=== PATIENT | male | born 1980 | race Caucasian/White ===

== ENCOUNTER 2024-05-24 22:52 | Emergency (ER) | payer MEDICARE, MEDICAID ==
[~2024-05-24] VITALS: Ht 180.3 cm; Wt 70.5 kg
[~2024-05-24 22:52] MED LIST: PALI39DI IM
[2024-05-24 22:59] VITALS: BP 107/79; PULSE 81; RESP 14; TEMP 98.1; O2SAT 99
[2024-05-25] MEDS ORDERED: PANT40TA54 PO (18:34)
[2024-05-25] MEDS ORDERED: ATOR10TA70 PO (18:34)
[2024-05-25] MEDS ORDERED: PALI234D IM (18:34)
== END 2024-05-25 01:31 | disposition left against medical advice (07) ==
LOC: ER 22:53
DX: R69 Illness, unspecified (principal); Z53.21 Procedure and treatment not carried out due to patient leaving prior to being seen by health care provider; Z88.8 Allergy status to other drugs, medicaments and biological substances

== ENCOUNTER 2024-05-25 03:26 | Emergency (ER) | payer MEDICARE, MEDICAID ==
[~2024-05-25] VITALS: Ht 180.3 cm; Wt 69.8 kg
[2024-05-25 03:31] VITALS: BP 108/79; PULSE 79; RESP 16; TEMP 98; O2SAT 98
[2024-05-25] MEDS ORDERED: ATOR10TA70 PO (18:34)
[2024-05-25] MEDS ORDERED: PALI234D IM (18:34)
[2024-05-25] MEDS ORDERED: PANT40TA54 PO (18:34)
== END 2024-05-25 04:37 | disposition left against medical advice (07) ==
LOC: ER 03:27
DX: R69 Illness, unspecified (principal); Z53.21 Procedure and treatment not carried out due to patient leaving prior to being seen by health care provider

== ENCOUNTER 2024-05-25 11:25 | Emergency (ER) | payer MEDICARE, MEDICAID ==
[~2024-05-25] VITALS: Ht 180.3 cm; Wt 58.2 kg
[2024-05-25 12:56] LABS: BASOPHILS % (AUTO) 0.4 % (0-1); EOSINOPHILS # (AUTO) 0.1 X10'3 (0-0.9); EOSINOPHILS % (AUTO) 1.1 % (0-6); HEMATOCRIT 38.2 % (42.0-52.0); HEMOGLOBIN 12.7 g/dl (14.0-17.9); LYMPHOCYTES # (AUTO) 1.1 X10'3 (1.1-4.8); LYMPHOCYTES % (AUTO) 15.5 % (21-51); MEAN CORPUSCULAR HEMOGLOBIN 31.2 PG (27.0-31.0); MEAN CORPUSCULAR HGB CONC 33.4 g/dL (33.0-36.5); MEAN CORPUSCULAR VOLUME 93.4 FL (78-98); MEAN PLATELET VOLUME 8.1 FL (7.4-10.4); MONOCYTES # (AUTO) 0.8 X10'3 (0-0.9); MONOCYTES % (AUTO) 11.2 % (2-12); NEUTROPHILS # (AUTO) 4.9 X10'3 (1.8-7.7); NEUTROPHILS % (AUTO) 71.8 % (42-75); PLATELET COUNT 249 X10'3 (140-440); RED BLOOD COUNT 4.09 X10'6 (4.70-6.10); RED CELL DISTRIBUTION WIDTH 13.8 % (11.5-14.5); WHITE BLOOD COUNT 6.8 X10'3 (4.5-11.0)
[2024-05-25 13:03] LABS: ALBUMIN 3.9 G/DL (3.4-5.0); ANION GAP 10 (8-16); BLOOD UREA NITROGEN 30 MG/DL (7-18); BUN/CREATININE RATIO 22.6 (10.0-20.0); CALCIUM 9.4 MG/DL (8.5-10.1); CHLORIDE 103 MMOL/L (99-107); CREATININE 1.33 MG/DL (0.60-1.10); ETHANOL < 10 MG/DL (<10); GLUCOSE 142 MG/DL (70-104); POTASSIUM 3.8 MMOL/L (3.5-5.1); SODIUM 140 MMOL/L (135-145); TOTAL CARBON DIOXIDE 27.2 MMOL/L (24-32); eCRCL 58 ML/MIN; eGFR 58 ML/MIN
[2024-05-25 13:33] LABS: URINE AMPHETAMINE SCREEN POSITIVE (Neg); URINE BARBITUATE SCREEN NEGATIVE (Neg); URINE BENZODIAZEPINES SCREEN NEGATIVE (Neg); URINE CANNABINOID SCREEN POSITIVE (Neg); URINE COCAINE SCREEN NEGATIVE (Neg); URINE METHADONE SCREEN NEGATIVE (Neg); URINE OPIATE SCREEN NEGATIVE (Neg); URINE PHENCYCLIDINE SCREEN NEGATIVE (Neg)
[2024-05-25 18:02] VITALS: TEMP 98
[2024-05-25] MEDS ORDERED: PANT40TA54 PO (18:34)
[2024-05-25] MEDS ORDERED: ATOR10TA70 PO (18:34)
[2024-05-25] MEDS ORDERED: PALI234D IM (18:34)
[2024-05-26 05:50] VITALS: BP 96/73; PULSE 78; O2SAT 99
[2024-05-26 06:51] VITALS: RESP 12
[2024-05-26] MEDS: pantoprazole 40mg Tablet.DR PO SCH (08:35)
[2024-06-22] MEDS ORDERED: paliperidone palmitate inj 234 MG/1.5 ML SYRINGE IM SCH (08:00)
== END 2024-05-26 10:55 | disposition home or self-care (01) ==
LOC: ER 11:25
DX: F20.9 Schizophrenia, unspecified (principal); Z20.822 Contact with and (suspected) exposure to COVID-19; F15.10 Other stimulant abuse, uncomplicated; F12.90 Cannabis use, unspecified, uncomplicated; Z88.5 Allergy status to narcotic agent; Z79.899 Other long term (current) drug therapy
CPT/HCPCS: 36415; 80048; 80305; 80320; 85025; 87811; 99284

== ENCOUNTER 2024-05-29 14:51 | Emergency (ER) | payer MEDICARE, MEDICAID ==
[~2024-05-29] VITALS: Ht 180.3 cm; Wt 70.5 kg
[~2024-05-29 14:51] MED LIST changes: +ATOR10TA70 PO; +PALI234D IM; -PALI39DI IM; +PANT40TA54 PO
[2024-05-29 14:59] VITALS: BP 105/72; PULSE 89; RESP 16; TEMP 97.2; O2SAT 97
== END 2024-05-29 15:37 | disposition home or self-care (01) ==
LOC: ER 14:51
DX: F20.9 Schizophrenia, unspecified (principal); F12.90 Cannabis use, unspecified, uncomplicated; F15.90 Other stimulant use, unspecified, uncomplicated; Z88.5 Allergy status to narcotic agent; Z79.899 Other long term (current) drug therapy
CPT/HCPCS: 99281

== ENCOUNTER 2024-05-29 18:03 | Emergency (ER) | payer MEDICARE, MEDICAID ==
[~2024-05-29] VITALS: Ht 180.3 cm; Wt 63.6 kg
[2024-05-29 18:57] LABS: ALBUMIN 3.5 G/DL (3.4-5.0); ANION GAP 11 (8-16); BLOOD UREA NITROGEN 15 MG/DL (7-18); CALCIUM 9.3 MG/DL (8.5-10.1); CHLORIDE 106 MMOL/L (99-107); CREATININE 0.94 MG/DL (0.60-1.10); GLUCOSE 115 MG/DL (70-104); POTASSIUM 3.6 MMOL/L (3.5-5.1); SODIUM 145 MMOL/L (135-145); TOTAL CARBON DIOXIDE 28.1 MMOL/L (24-32); eCRCL 90 ML/MIN; eGFR 87 ML/MIN
[2024-05-29 18:59] LABS: HEMOGLOBIN 11.8 g/dl (14.0-17.9)
[2024-05-29 19:01] LABS: BASOPHILS % (AUTO) 0.4 % (0-1); EOSINOPHILS # (AUTO) 0.2 X10'3 (0-0.9); EOSINOPHILS % (AUTO) 2.5 % (0-6); ETHANOL < 10 MG/DL (<10); HEMATOCRIT 35.4 % (42.0-52.0); LYMPHOCYTES # (AUTO) 1.4 X10'3 (1.1-4.8); LYMPHOCYTES % (AUTO) 22.8 % (21-51); MEAN CORPUSCULAR HGB CONC 33.3 g/dL (33.0-36.5); MEAN CORPUSCULAR VOLUME 93.2 FL (78-98); MEAN PLATELET VOLUME 7.8 FL (7.4-10.4); MONOCYTES # (AUTO) 0.6 X10'3 (0-0.9); MONOCYTES % (AUTO) 9.6 % (2-12); NEUTROPHILS % (AUTO) 64.7 % (42-75); PLATELET COUNT 249 X10'3 (140-440); RED CELL DISTRIBUTION WIDTH 13.9 % (11.5-14.5); WHITE BLOOD COUNT 6.2 X10'3 (4.5-11.0)
[2024-05-29] MEDS: atorvastatin 10mg tablet PO SCH (21:03)
[2024-05-29 22:13] LABS: URINE AMPHETAMINE SCREEN NEGATIVE (Neg); URINE BARBITUATE SCREEN NEGATIVE (Neg); URINE BENZODIAZEPINES SCREEN NEGATIVE (Neg); URINE CANNABINOID SCREEN POSITIVE (Neg); URINE COCAINE SCREEN NEGATIVE (Neg); URINE METHADONE SCREEN NEGATIVE (Neg); URINE OPIATE SCREEN NEGATIVE (Neg); URINE PHENCYCLIDINE SCREEN NEGATIVE (Neg)
[2024-05-29 22:26] LABS: BILIRUBIN,URINE NEGATIVE (Neg); CLARITY,URINE CLEAR (Clear); COLOR,URINE YELLOW (Yellow); GLUCOSE, URINE NEGATIVE (Neg); KETONES,URINE NEGATIVE (Neg); LEUKOCYTE ESTERASE ,URINE NEGATIVE (Neg); NITRITES, URINE NEGATIVE (Neg); OCCULT BLOOD,URINE NEGATIVE (Neg); PROTEIN,URINE NEGATIVE (Neg); UROBILINOGEN,URINE 0.2 E.U/dL (0.2-1.0)
[2024-05-29 22:36] LABS: UA COLLECTION TYPE VOIDED
[2024-05-29 22:36] LABS: ALANINE AMINOTRANSFERASE 110 U/L (12-78); ALBUMIN/GLOBULIN RATIO 1.2 (1.1-1.5); ALKALINE PHOSPHATASE 133 IU/L (46-116); ASPARTATE AMINO TRANSFERASE 41 U/L (10-37); BILIRUBIN,DIRECT 0.1 MG/DL (0-0.3); BILIRUBIN,TOTAL 0.5 MG/DL (0.1-1.0); THYROID STIMULATING HORMONE 2.57 ulU/ml (0.34-4.50); TOTAL PROTEIN 6.5 G/DL (6.4-8.2)
[2024-05-30] MEDS ORDERED: pantoprazole 40mg Tablet.DR PO SCH (08:00)
[2024-05-30 08:59] VITALS: BP 91/53; PULSE 58; RESP 17; O2SAT 100
[2024-05-30 09:24] VITALS: TEMP 97.7
[2024-06-21] MEDS ORDERED: paliperidone palmitate inj 234 MG/1.5 ML SYRINGE IM SCH (08:00)
== END 2024-05-30 09:23 | disposition home or self-care (01) ==
LOC: ER 18:04
DX: F20.9 Schizophrenia, unspecified (principal); Z20.822 Contact with and (suspected) exposure to COVID-19; F12.90 Cannabis use, unspecified, uncomplicated; F15.90 Other stimulant use, unspecified, uncomplicated; Z88.5 Allergy status to narcotic agent; Z79.899 Other long term (current) drug therapy
CPT/HCPCS: 36415; 80048; 80076; 80305; 80320; 81003; 84443; 85025; 87811; 99284

== ENCOUNTER 2024-06-05 18:11 | Emergency (ER) | payer MEDICARE, MEDICAID ==
[~2024-06-05] VITALS: Ht 175.3 cm; Wt 77.3 kg
[2024-06-05 18:14] VITALS: BP 107/62; PULSE 89; RESP 18; TEMP 98.3; O2SAT 98
[2024-06-05] MEDS: naproxen 500mg tablet PO ONE (18:56)
== END 2024-06-05 18:58 | disposition home or self-care (01) ==
LOC: ER 18:11
DX: S90.821A Blister (nonthermal), right foot, initial encounter (principal); F12.90 Cannabis use, unspecified, uncomplicated; F15.10 Other stimulant abuse, uncomplicated; Z88.5 Allergy status to narcotic agent; X58.XXXA Exposure to other specified factors, initial encounter; Y93.89 Activity, other specified; Y92.89 Other specified places as the place of occurrence of the external cause; Y99.8 Other external cause status
CPT/HCPCS: 99283

== ENCOUNTER 2024-06-15 22:42 | Emergency (ER) | payer MEDICARE, MEDICAID ==
[~2024-06-15] VITALS: Ht 180.3 cm; Wt 72.0 kg
[2024-06-15 23:00] LABS: BASOPHILS % (AUTO) 0.6 % (0-1); EOSINOPHILS # (AUTO) 0.2 X10'3 (0-0.9); EOSINOPHILS % (AUTO) 3.6 % (0-6); HEMATOCRIT 32.9 % (42.0-52.0); HEMOGLOBIN 11.1 g/dl (14.0-17.9); LYMPHOCYTES % (AUTO) 32.7 % (21-51); MEAN CORPUSCULAR HEMOGLOBIN 31.4 PG (27.0-31.0); MEAN CORPUSCULAR HGB CONC 33.8 g/dL (33.0-36.5); MEAN CORPUSCULAR VOLUME 92.8 FL (78-98); MONOCYTES # (AUTO) 0.6 X10'3 (0-0.9); MONOCYTES % (AUTO) 9.5 % (2-12); NEUTROPHILS # (AUTO) 3.3 X10'3 (1.8-7.7); NEUTROPHILS % (AUTO) 53.6 % (42-75); PLATELET COUNT 307 X10'3 (140-440); RED BLOOD COUNT 3.54 X10'6 (4.70-6.10); RED CELL DISTRIBUTION WIDTH 13.8 % (11.5-14.5); WHITE BLOOD COUNT 6.1 X10'3 (4.5-11.0)
[2024-06-15] MEDS: diphenhydrAMINE 50 mg/ml inj IM ONE (23:10)
[2024-06-15] MEDS: haloperidol lactate 5mg/ml inj IM ONE (23:10)
[2024-06-15] MEDS: LORazepam 2 mg/ml vial IM ONE (23:10)
[2024-06-15 23:11] LABS: ALBUMIN 3.3 G/DL (3.4-5.0); ANION GAP 5 (8-16); BLOOD UREA NITROGEN 12 MG/DL (7-18); BUN/CREATININE RATIO 15.8 (10.0-20.0); CALCIUM 8.8 MG/DL (8.5-10.1); CHLORIDE 106 MMOL/L (99-107); CREATININE 0.76 MG/DL (0.60-1.10); GLUCOSE 92 MG/DL (70-104); SODIUM 140 MMOL/L (135-145); TOTAL CARBON DIOXIDE 29.4 MMOL/L (24-32); eCRCL 126 ML/MIN; eGFR > 90 ML/MIN
[2024-06-15 23:13] LABS: ETHANOL < 10 MG/DL (<10)
[2024-06-15] MEDS: ketoconazole 2% cream 15gm TP SCH (23:25)
[2024-06-16 00:02] LABS: URINE AMPHETAMINE SCREEN POSITIVE (Neg); URINE BARBITUATE SCREEN NEGATIVE (Neg); URINE BENZODIAZEPINES SCREEN NEGATIVE (Neg); URINE CANNABINOID SCREEN POSITIVE (Neg); URINE COCAINE SCREEN NEGATIVE (Neg); URINE METHADONE SCREEN NEGATIVE (Neg); URINE OPIATE SCREEN NEGATIVE (Neg); URINE PHENCYCLIDINE SCREEN NEGATIVE (Neg)
[2024-06-16 05:51] VITALS: BP 98/52; PULSE 50; RESP 14; TEMP 98.4; O2SAT 99
== END 2024-06-16 16:00 | disposition home or self-care (01) ==
LOC: ER 22:43
DX: R45.851 Suicidal ideations (principal); Z20.822 Contact with and (suspected) exposure to COVID-19; F12.90 Cannabis use, unspecified, uncomplicated; F15.90 Other stimulant use, unspecified, uncomplicated; Z88.5 Allergy status to narcotic agent; Z79.899 Other long term (current) drug therapy
CPT/HCPCS: 36415; 80048; 80305; 80320; 85025; 87811; 99284; 99285

== ENCOUNTER 2024-06-17 22:32 | Inpatient (IN) | payer MEDICARE, MEDICAID ==
[~2024-06-17] VITALS: Ht 180.3 cm; Wt 68.4 kg
[2024-06-18 00:05] LABS: ALANINE AMINOTRANSFERASE 24 U/L (12-78); ALBUMIN 3.2 G/DL (3.4-5.0); ALBUMIN/GLOBULIN RATIO 1.1 (1.1-1.5); ALKALINE PHOSPHATASE 139 IU/L (46-116); ANION GAP 7 (8-16); ASPARTATE AMINO TRANSFERASE 26 U/L (10-37); BILIRUBIN,TOTAL 0.4 MG/DL (0.1-1.0); BLOOD UREA NITROGEN 21 MG/DL (7-18); BUN/CREATININE RATIO 23.1 (10.0-20.0); CALCIUM 9.1 MG/DL (8.5-10.1); CHLORIDE 105 MMOL/L (99-107); CREATININE 0.91 MG/DL (0.60-1.10); GLUCOSE 96 MG/DL (70-104); POTASSIUM 3.9 MMOL/L (3.5-5.1); SODIUM 140 MMOL/L (135-145); TOTAL CARBON DIOXIDE 28.3 MMOL/L (24-32); TOTAL PROTEIN 6.2 G/DL (6.4-8.2); eCRCL 102 ML/MIN; eGFR > 90 ML/MIN
[2024-06-18 00:07] LABS: BASOPHILS % (AUTO) 0.4 % (0-1); EOSINOPHILS # (AUTO) 0.1 X10'3 (0-0.9); HEMATOCRIT 33.7 % (42.0-52.0); HEMOGLOBIN 11.1 g/dl (14.0-17.9); LYMPHOCYTES % (AUTO) 28.4 % (21-51); MEAN CORPUSCULAR VOLUME 93.9 FL (78-98); MEAN PLATELET VOLUME 7.2 FL (7.4-10.4); MONOCYTES # (AUTO) 0.6 X10'3 (0-0.9); MONOCYTES % (AUTO) 8.7 % (2-12); NEUTROPHILS # (AUTO) 4.3 X10'3 (1.8-7.7); NEUTROPHILS % (AUTO) 60.5 % (42-75); PLATELET COUNT 309 X10'3 (140-440); RED BLOOD COUNT 3.59 X10'6 (4.70-6.10); RED CELL DISTRIBUTION WIDTH 13.9 % (11.5-14.5); WHITE BLOOD COUNT 7.2 X10'3 (4.5-11.0)
[2024-06-18 00:14] LABS: ETHANOL < 10 MG/DL (<10); THYROID STIMULATING HORMONE 2.33 ulU/ml (0.34-4.50)
[2024-06-18 12:52] LABS: BILIRUBIN,URINE NEGATIVE (Neg); CLARITY,URINE SLIGHTLY CLOUDY (Clear); COLOR,URINE YELLOW (Yellow); GLUCOSE, URINE NEGATIVE (Neg); KETONES,URINE NEGATIVE (Neg); LEUKOCYTE ESTERASE ,URINE NEGATIVE (Neg); NITRITES, URINE NEGATIVE (Neg); OCCULT BLOOD,URINE NEGATIVE (Neg); PROTEIN,URINE NEGATIVE (Neg); UA COLLECTION TYPE CLN CATCH MIDSTREAM; UROBILINOGEN,URINE 0.2 E.U/dL (0.2-1.0)
[2024-06-18 12:53] LABS: URINE AMPHETAMINE SCREEN POSITIVE (Neg); URINE BARBITUATE SCREEN NEGATIVE (Neg); URINE BENZODIAZEPINES SCREEN NEGATIVE (Neg); URINE CANNABINOID SCREEN POSITIVE (Neg); URINE COCAINE SCREEN NEGATIVE (Neg); URINE METHADONE SCREEN NEGATIVE (Neg); URINE OPIATE SCREEN NEGATIVE (Neg); URINE PHENCYCLIDINE SCREEN NEGATIVE (Neg)
[2024-06-18 12:59] LABS: MUCUS STRANDS MODERATE /LPF (Neg); SQUAMOUS EPITHELIAL CELL,UR FEW /LPF (FEW)
[2024-06-18 13:03] LABS: RBC,URINE 0-2 /HPF (0-2); WBC,URINE 0-4 /HPF (0-4)
[2024-06-18 13:06] LABS: AMORPHOUS PHOSPHATES 1+; BACTERIA,URINE FEW /HPF (Neg)
[2024-06-18] MEDS ORDERED: haloperidol lactate 5mg/ml inj IM ONE (18:50)
[2024-06-18] MEDS: LORazepam 2 mg/ml vial IM ONE ×2 (18:55→19:05)
[2024-06-18] MEDS: diphenhydrAMINE 50 mg/ml inj IM ONE (18:55)
[2024-06-18] MEDS: haloperidol lactate 5mg/ml inj IM ONE ×2 (18:56)
[2024-06-18] MEDS: ziprasidone IM 20mg inj **IM only IM ONE (19:05)
[2024-06-19] MEDS: ziprasidone IM 20mg inj **IM only IM ONE (19:36)
[2024-06-19] MEDS: LORazepam 2 mg/ml vial IM ONE (19:47)
[2024-06-19] MEDS: OLANZapine 5mg rapidly disint. tablet PO SCH (20:00)
[2024-06-20 14:28] VITALS: BP 106/55; PULSE 95; RESP 16; TEMP 98.5; O2SAT 97
[2024-06-20] MEDS ORDERED: NICOTINE POLACRILEX 2 MG LOZENGE BC PRN (14:50)
[2024-06-20] MEDS ORDERED: magnesium hydroxide 30ml (MOM) UD suspension PO PRN (14:50)
[2024-06-20] MEDS ORDERED: mag hydrox/Alum hydrox/simeth 30ml oral suspension PO PRN (14:50)
[2024-06-20] MEDS ORDERED: acetaminophen 325mg tablet PO PRN ×2 (14:50)
[2024-06-20 15:15] VITALS: RESP 16; O2SAT 97
[2024-06-20] MEDS: LORazepam 1 MG tablet PO ONE (16:13)
[2024-06-20] MEDS: LORazepam 1 MG tablet PO SCH (20:09)
[2024-06-21 07:00] VITALS: RESP 16; O2SAT 100
[2024-06-21] MEDS: pantoprazole 40mg Tablet.DR PO SCH (07:49)
[2024-06-21] MEDS: nicotine 21mg patch - 24 hr TD SCH (07:52)
[2024-06-21 08:00] VITALS: BP 110/60; PULSE 78; RESP 16; TEMP 98.4; O2SAT 100
[2024-06-21 09:54] VITALS: BP 110/60; PULSE 78; RESP 16; TEMP 98.4; O2SAT 100
[2024-06-21 09:57] LABS: BASOPHILS % (AUTO) 0.7 % (0-1); EOSINOPHILS # (AUTO) 0.2 X10'3 (0-0.9); EOSINOPHILS % (AUTO) 3.4 % (0-6); HEMATOCRIT 39.8 % (42.0-52.0); HEMOGLOBIN 13.2 g/dl (14.0-17.9); LYMPHOCYTES # (AUTO) 1.1 X10'3 (1.1-4.8); LYMPHOCYTES % (AUTO) 20.1 % (21-51); MEAN CORPUSCULAR HGB CONC 33.2 g/dL (33.0-36.5); MEAN CORPUSCULAR VOLUME 93.5 FL (78-98); MEAN PLATELET VOLUME 6.9 FL (7.4-10.4); MONOCYTES # (AUTO) 0.5 X10'3 (0-0.9); MONOCYTES % (AUTO) 9.5 % (2-12); NEUTROPHILS # (AUTO) 3.5 X10'3 (1.8-7.7); NEUTROPHILS % (AUTO) 66.3 % (42-75); PLATELET COUNT 307 X10'3 (140-440); RED BLOOD COUNT 4.26 X10'6 (4.70-6.10); RED CELL DISTRIBUTION WIDTH 13.8 % (11.5-14.5); WHITE BLOOD COUNT 5.3 X10'3 (4.5-11.0)
[2024-06-21 10:24] LABS: ALANINE AMINOTRANSFERASE 25 U/L (12-78); ALBUMIN 3.2 G/DL (3.4-5.0); ALBUMIN/GLOBULIN RATIO 0.9 (1.1-1.5); ALKALINE PHOSPHATASE 133 IU/L (46-116); ANION GAP 5 (8-16); ASPARTATE AMINO TRANSFERASE 24 U/L (10-37); BILIRUBIN,TOTAL 0.2 MG/DL (0.1-1.0); CALCIUM 9.1 MG/DL (8.5-10.1); CHLORIDE 103 MMOL/L (99-107); CREATININE 0.78 MG/DL (0.60-1.10); GLUCOSE 79 MG/DL (70-104); POTASSIUM 4.6 MMOL/L (3.5-5.1); SODIUM 136 MMOL/L (135-145); THYROID STIMULATING HORMONE 2.68 ulU/ml (0.34-4.50); TOTAL CARBON DIOXIDE 28.4 MMOL/L (24-32); TOTAL PROTEIN 6.6 G/DL (6.4-8.2); eCRCL 117 ML/MIN; eGFR > 90 ML/MIN
[2024-06-21 10:39] LABS: BLOOD UREA NITROGEN 21 MG/DL (7-18); BUN/CREATININE RATIO 26.9 (10.0-20.0); HEMOGLOBIN A1C 5.5 % (4.5-6.2)
[2024-06-21] MEDS: paliperidone palmitate inj 234 MG/1.5 ML SYRINGE IM ONE (12:46)
[2024-06-21] MEDS ORDERED: NICO-907 BC (13:57)
[2024-06-21] MEDS ORDERED: NICO-687 TD (13:57)
[2024-06-21] MEDS ORDERED: ATOR10TA70 PO (13:57)
[2024-06-21] MEDS ORDERED: PANT40TA54 PO (13:57)
== END 2024-06-21 14:05 | disposition home or self-care (01) | DRG 885 ==
LOC: ER 22:32 → ADULT MH 06-20 13:00 → UNDOADMIN 06-20 13:00 → ADULT MH 06-20 14:57
PROVIDERS: ADMIT Psychiatry & Neurology Psychiatry; ATTEND Psychiatry & Neurology Psychiatry
PROC: GZ51ZZZ Individual Psychotherapy, Behavioral (ICD-10-PCS; principal; 2024-06-21)
DX: F25.9 Schizoaffective disorder, unspecified (principal); R45.851 Suicidal ideations; Z59.00 Homelessness unspecified; F17.210 Nicotine dependence, cigarettes, uncomplicated; F15.10 Other stimulant abuse, uncomplicated; Z20.822 Contact with and (suspected) exposure to COVID-19; K22.70 Barrett's esophagus without dysplasia; Z56.0 Unemployment, unspecified; Z81.8 Family history of other mental and behavioral disorders; Z88.5 Allergy status to narcotic agent; Z88.6 Allergy status to analgesic agent; Z79.899 Other long term (current) drug therapy
CPT/HCPCS: 36415; 80053; 80305; 80320; 81001; 83036; 84443; 85025; 87081; 87811; 96372; 99284; 99285; A6258; A6446; A6449; J1200; J2060; J2426; J3486

== ENCOUNTER 2024-07-12 02:37 | Emergency (ER) | payer MEDICARE, MEDICAID ==
[~2024-07-12] VITALS: Ht 180.3 cm; Wt 70.1 kg
[~2024-07-12 02:37] MED LIST changes: +NICO-687 TD; +NICO-907 BC
[2024-07-12 02:47] VITALS: TEMP 97.7
--- NOTE | 2024-07-12 03:26 | NUR ---
yarn sorter requested orders for labs/ua/covid swab from ermd, ermd states to hold off for now b/c he will talk to patient first.
--- NOTE | 2024-07-12 04:23 | NUR ---
PATIENT SCORES HIGH RISK ON CSSRS DREQUENT ASSESSMENT, MD AWARE AND HAS WRITTEN ORDER FOR OBSERVATION STATUS, SEE EMR.
[2024-07-12 04:42] LABS: BILIRUBIN,URINE SMALL (Neg); CLARITY,URINE CLEAR (Clear); GLUCOSE, URINE NEGATIVE (Neg); KETONES,URINE NEGATIVE (Neg); LEUKOCYTE ESTERASE ,URINE NEGATIVE (Neg); OCCULT BLOOD,URINE NEGATIVE (Neg); PROTEIN,URINE NEGATIVE (Neg); UROBILINOGEN,URINE 0.2 E.U/dL (0.2-1.0)
[2024-07-12 04:53] LABS: COLOR,URINE DARK YELLOW (Yellow); NITRITES, URINE NEGATIVE (Neg); UA COLLECTION TYPE CLN CATCH MIDSTREAM
[2024-07-12 04:55] LABS: URINE AMPHETAMINE SCREEN POSITIVE (Neg); URINE BARBITUATE SCREEN NEGATIVE (Neg); URINE BENZODIAZEPINES SCREEN NEGATIVE (Neg); URINE CANNABINOID SCREEN POSITIVE (Neg); URINE COCAINE SCREEN NEGATIVE (Neg); URINE METHADONE SCREEN NEGATIVE (Neg); URINE OPIATE SCREEN NEGATIVE (Neg); URINE PHENCYCLIDINE SCREEN NEGATIVE (Neg)
[2024-07-12 05:08] VITALS: BP 130/77; PULSE 78; RESP 20; O2SAT 98
[2024-07-12 05:12] LABS: BASOPHILS % (AUTO) 0.5 % (0-1); EOSINOPHILS # (AUTO) 0.2 X10'3 (0-0.9); HEMATOCRIT 34.3 % (42.0-52.0); HEMOGLOBIN 11.3 g/dl (14.0-17.9); LYMPHOCYTES # (AUTO) 2.3 X10'3 (1.1-4.8); LYMPHOCYTES % (AUTO) 32.4 % (21-51); MEAN CORPUSCULAR HEMOGLOBIN 30.2 PG (27.0-31.0); MEAN CORPUSCULAR HGB CONC 32.9 g/dL (33.0-36.5); MEAN CORPUSCULAR VOLUME 91.7 FL (78-98); MEAN PLATELET VOLUME 6.9 FL (7.4-10.4); MONOCYTES # (AUTO) 0.7 X10'3 (0-0.9); MONOCYTES % (AUTO) 9.4 % (2-12); NEUTROPHILS # (AUTO) 3.9 X10'3 (1.8-7.7); NEUTROPHILS % (AUTO) 54.7 % (42-75); PLATELET COUNT 272 X10'3 (140-440); RED BLOOD COUNT 3.74 X10'6 (4.70-6.10); RED CELL DISTRIBUTION WIDTH 13.7 % (11.5-14.5); WHITE BLOOD COUNT 7.1 X10'3 (4.5-11.0)
[2024-07-12 05:37] LABS: ALBUMIN 3.2 G/DL (3.4-5.0); ANION GAP 4 (8-16); BLOOD UREA NITROGEN 12 MG/DL (7-18); BUN/CREATININE RATIO 13.3 (10.0-20.0); CALCIUM 8.7 MG/DL (8.5-10.1); CHLORIDE 108 MMOL/L (99-107); GLUCOSE 97 MG/DL (70-104); POTASSIUM 3.6 MMOL/L (3.5-5.1); SODIUM 141 MMOL/L (135-145); THYROID STIMULATING HORMONE 1.54 ulU/ml (0.34-4.50); TOTAL CARBON DIOXIDE 29.2 MMOL/L (24-32); eCRCL 104 ML/MIN; eGFR > 90 ML/MIN
--- NOTE | 2024-07-12 05:37 | NUR ---
DR. RUSSO AT BEDSIDE TO ASSESS PATIENT. FOLLOWING ASSESSMENT, DR. RUSSO INFORMED PATIENT THAT HE FELT THOUGH PATIENT DID NOT MEET CRITERIA FOR PSYCH HOLD IN THE ER AND WOULD BE DISCHARGING PATIENT. DR. RUSSO EXITED ROOM, PLACED DISCHARGE ORDERS, AND RETURNED SHORTLY AFTER WITH TECH IN HIS COMPANY TO FURTHER DISCUSS HIS DECISION WITH PATIENT, PATIENT BECAME VISIBLY ANGRY AND SPIT ON DR. RUSSO AND LUNGED AT TECH STATING, "FUCK YOU FAOTS [employer] NIERS!". SECURITY CALLED TO BEDSIDE TO ESCORT PATIENT OUT ED DUE TO VIOLENT BEHAVIOR, PATIENT LEFT PRIOR TO SIGNING DISCHARGE PAPERWORK.
[2024-07-12 06:05] LABS: ETHANOL < 10 MG/DL (<10)
== END 2024-07-12 05:46 | disposition home or self-care (01) ==
LOC: ER 02:38
DX: R45.851 Suicidal ideations (principal); F15.10 Other stimulant abuse, uncomplicated; F12.90 Cannabis use, unspecified, uncomplicated; F20.9 Schizophrenia, unspecified; Z79.899 Other long term (current) drug therapy; Z88.8 Allergy status to other drugs, medicaments and biological substances; Z59.00 Homelessness unspecified; Z98.890 Other specified postprocedural states; Z20.822 Contact with and (suspected) exposure to COVID-19
CPT/HCPCS: 36415; 80048; 80305; 80320; 81003; 84443; 85025; 87811; 99283; 99285

== ENCOUNTER 2024-08-21 21:38 | Emergency (ER) | payer MEDICARE, MEDICAID ==
[~2024-08-21] VITALS: Ht 180.3 cm; Wt 68.2 kg
[~2024-08-21 21:38] MED LIST changes: -ATOR10TA70 PO; -NICO-687 TD; -NICO-907 BC; -PANT40TA54 PO
[2024-08-21 21:47] VITALS: BP 100/64; PULSE 74; TEMP 97.7; O2SAT 94
[2024-08-21 22:18] LABS: BASOPHILS % (AUTO) 0.6 % (0-1); EOSINOPHILS # (AUTO) 0.3 X10'3 (0-0.9); EOSINOPHILS % (AUTO) 3.9 % (0-6); HEMATOCRIT 35.4 % (42.0-52.0); HEMOGLOBIN 11.7 g/dl (14.0-17.9); LYMPHOCYTES # (AUTO) 2.1 X10'3 (1.1-4.8); LYMPHOCYTES % (AUTO) 29.4 % (21-51); MEAN CORPUSCULAR HEMOGLOBIN 31.2 PG (27.0-31.0); MEAN CORPUSCULAR HGB CONC 33.1 g/dL (33.0-36.5); MEAN CORPUSCULAR VOLUME 94.3 FL (78-98); MEAN PLATELET VOLUME 7.9 FL (7.4-10.4); MONOCYTES # (AUTO) 0.6 X10'3 (0-0.9); MONOCYTES % (AUTO) 9.1 % (2-12); NEUTROPHILS # (AUTO) 4.1 X10'3 (1.8-7.7); PLATELET COUNT 259 X10'3 (140-440); RED BLOOD COUNT 3.76 X10'6 (4.70-6.10); RED CELL DISTRIBUTION WIDTH 14.1 % (11.5-14.5); WHITE BLOOD COUNT 7.1 X10'3 (4.5-11.0)
[2024-08-21] MEDS ORDERED: PANT-47 PO (22:32)
[2024-08-21] MEDS ORDERED: ATOR20TA66 PO (22:34)
[2024-08-21] MEDS ORDERED: hydrOXYzine 25 MG tablet PO PRN (22:40)
[2024-08-21 22:42] LABS: ALANINE AMINOTRANSFERASE 27 U/L (12-78); ALBUMIN 3.3 G/DL (3.4-5.0); ALBUMIN/GLOBULIN RATIO 1.3 (1.1-1.5); ALKALINE PHOSPHATASE 96 IU/L (46-116); ANION GAP 5 (8-16); ASPARTATE AMINO TRANSFERASE 26 U/L (10-37); BILIRUBIN,TOTAL 0.3 MG/DL (0.1-1.0); BLOOD UREA NITROGEN 14 MG/DL (7-18); BUN/CREATININE RATIO 16.3 (10.0-20.0); CALCIUM 8.5 MG/DL (8.5-10.1); CHLORIDE 105 MMOL/L (99-107); CREATININE 0.86 MG/DL (0.60-1.10); GLUCOSE 81 MG/DL (70-104); POTASSIUM 3.5 MMOL/L (3.5-5.1); SODIUM 138 MMOL/L (135-145); TOTAL CARBON DIOXIDE 28.1 MMOL/L (24-32); TOTAL PROTEIN 5.8 G/DL (6.4-8.2); eCRCL 106 ML/MIN; eGFR > 90 ML/MIN
[2024-08-21 22:51] LABS: PRO BRAIN NATRIURETIC PEPTIDE 784 PG/ML (0-125)
[2024-08-22 03:00] VITALS: RESP 14
[2024-08-22] MEDS: divalproex 250mg tablet, delayed-release PO SCH (08:47)
[2024-08-22] MEDS: PALIPERIDONE 3 MG TAB.ER.24 PO SCH (08:47)
[2024-08-22] MEDS: atorvastatin 10mg tablet PO SCH (08:47)
[2024-08-22] MEDS: pantoprazole 40mg Tablet.DR PO SCH (08:48)
== END 2024-08-22 14:27 | disposition home or self-care (01) ==
LOC: ER 21:38
DX: F29 Unspecified psychosis not due to a substance or known physiological condition (principal); F20.9 Schizophrenia, unspecified; F12.90 Cannabis use, unspecified, uncomplicated; F15.90 Other stimulant use, unspecified, uncomplicated; Z88.8 Allergy status to other drugs, medicaments and biological substances; Z88.5 Allergy status to narcotic agent; Z59.00 Homelessness unspecified
CPT/HCPCS: 36415; 71045; 80053; 83880; 84484; 85025; 93005; 99285

== ENCOUNTER 2024-09-04 16:35 | Emergency (ER) | payer MEDICARE, MEDICAID ==
[~2024-09-04] VITALS: Ht 172.7 cm; Wt 67.6 kg
[~2024-09-04 16:35] MED LIST changes: +ATOR20TA66 PO; +PANT-47 PO
[2024-09-04 16:36] VITALS: BP 115/77; PULSE 103; RESP 16; TEMP 98.2; O2SAT 100
== END 2024-09-04 21:16 | disposition home or self-care (01) ==
LOC: ER 16:35
DX: F20.9 Schizophrenia, unspecified (principal); F12.90 Cannabis use, unspecified, uncomplicated; F15.90 Other stimulant use, unspecified, uncomplicated; Z88.5 Allergy status to narcotic agent; Z79.899 Other long term (current) drug therapy; Z59.00 Homelessness unspecified
CPT/HCPCS: 99281; 99282

== ENCOUNTER 2024-09-06 18:37 | Inpatient (IN) | payer MEDICARE, MEDICAID ==
[~2024-09-06] VITALS: Ht 180.3 cm; Wt 68.3 kg
[2024-09-07 00:05] VITALS: BP 101/70; PULSE 73; RESP 18; TEMP 96.5; O2SAT 100
[2024-09-07 01:21] VITALS: RESP 18; O2SAT 100
[2024-09-07 07:00] VITALS: RESP 16; O2SAT 98
[2024-09-07 08:00] VITALS: BP 80/46; PULSE 61; RESP 16; TEMP 97.2; O2SAT 98
[2024-09-07] MEDS ORDERED: loperamide 2mg capsule PO PRN (10:20)
[2024-09-07] MEDS ORDERED: magnesium hydroxide 30ml (MOM) UD suspension PO PRN (10:20)
[2024-09-07] MEDS ORDERED: acetaminophen 325mg tablet PO PRN ×2 (10:20)
[2024-09-07] MEDS ORDERED: mag hydrox/Alum hydrox/simeth 30ml oral suspension PO PRN (10:20)
[2024-09-07] MEDS ORDERED: NICOTINE POLACRILEX 2 MG LOZENGE BC PRN (10:20)
[2024-09-07] MEDS: paliperidone palmitate 156 mg/ml inj.**IM only IM SCH (12:05)
[2024-09-07] MEDS: OLANZapine **IM** 10 mg inj. IM ONE (12:09)
[2024-09-07] MEDS: diphenhydrAMINE 50 mg/ml inj ONE (15:06)
[2024-09-07] MEDS: LORazepam 2 mg/ml vial ONE (15:06)
[2024-09-07 19:00] VITALS: RESP 16
[2024-09-07 20:00] VITALS: RESP 18
[2024-09-08 07:00] VITALS: BP 94/61; PULSE 66; RESP 66; TEMP 99; O2SAT 100
[2024-09-08 09:26] LABS: CHOLESTEROL 161 MG/DL (0-200); HDL CHOLESTEROL 54 MG/DL (35-60); LDL CHOLESTEROL 97 MG/DL (50-100); TRIGLYCERIDES 63 MG/DL (20-135)
[2024-09-08 09:43] LABS: HEMOGLOBIN A1C 5.4 % (4.5-6.2)
== END 2024-09-08 13:26 | disposition home or self-care (01) | DRG 885 ==
LOC: ADULT MH 21:27
PROVIDERS: ADMIT Psychiatry & Neurology Psychiatry; ATTEND Psychiatry & Neurology Psychiatry
DX: F25.9 Schizoaffective disorder, unspecified (principal); R45.851 Suicidal ideations; Z59.00 Homelessness unspecified; F15.10 Other stimulant abuse, uncomplicated; F32.A Depression, unspecified; Z88.5 Allergy status to narcotic agent; Z88.8 Allergy status to other drugs, medicaments and biological substances
CPT/HCPCS: 36415; 80061; 83036; J1200; J2060; J3490

== ENCOUNTER 2024-11-30 23:54 | Emergency (ER) | payer MEDICARE, MEDICAID ==
[2024-12-01 00:39] LABS: BASOPHILS % (AUTO) 0.7 % (0-1); EOSINOPHILS # (AUTO) 0.2 X10'3 (0-0.9); EOSINOPHILS % (AUTO) 3.6 % (0-6); HEMATOCRIT 34.8 % (42.0-52.0); HEMOGLOBIN 11.6 g/dl (14.0-17.9); LYMPHOCYTES # (AUTO) 1.1 X10'3 (1.1-4.8); MEAN CORPUSCULAR HEMOGLOBIN 30.2 PG (27.0-31.0); MEAN CORPUSCULAR HGB CONC 33.4 g/dL (33.0-36.5); MEAN CORPUSCULAR VOLUME 90.4 FL (78-98); MEAN PLATELET VOLUME 6.6 FL (7.4-10.4); MONOCYTES # (AUTO) 0.7 X10'3 (0-0.9); MONOCYTES % (AUTO) 12.3 % (2-12); NEUTROPHILS # (AUTO) 3.9 X10'3 (1.8-7.7); NEUTROPHILS % (AUTO) 65.4 % (42-75); PLATELET COUNT 349 X10'3 (140-440); RED BLOOD COUNT 3.85 X10'6 (4.70-6.10); RED CELL DISTRIBUTION WIDTH 14.1 % (11.5-14.5); WHITE BLOOD COUNT 5.9 X10'3 (4.5-11.0)
[2024-12-01 01:43] LABS: ALBUMIN 3.3 G/DL (3.4-5.0); ANION GAP 3 (8-16); BLOOD UREA NITROGEN 19 MG/DL (7-18); BUN/CREATININE RATIO 24.7 (10.0-20.0); CHLORIDE 105 MMOL/L (99-107); CREATININE 0.77 MG/DL (0.60-1.10); ETHANOL < 10 MG/DL (<10); GLUCOSE 67 MG/DL (70-104); POTASSIUM 3.8 MMOL/L (3.5-5.1); SODIUM 139 MMOL/L (135-145); THYROID STIMULATING HORMONE 1.86 ulU/ml (0.34-4.50); TOTAL CARBON DIOXIDE 30.9 MMOL/L (24-32); eGFR > 90 ML/MIN
[2024-12-01 07:18] LABS: BILIRUBIN,URINE NEGATIVE (Neg); CLARITY,URINE CLEAR (Clear); COLOR,URINE YELLOW (Yellow); GLUCOSE, URINE NEGATIVE (Neg); KETONES,URINE NEGATIVE (Neg); LEUKOCYTE ESTERASE ,URINE NEGATIVE (Neg); NITRITES, URINE NEGATIVE (Neg); OCCULT BLOOD,URINE NEGATIVE (Neg); PROTEIN,URINE NEGATIVE (Neg); UROBILINOGEN,URINE 0.2 E.U/dL (0.2-1.0)
[2024-12-01 07:24] LABS: UA COLLECTION TYPE NON-SPECIFIED
[2024-12-01 07:30] LABS: URINE AMPHETAMINE SCREEN POSITIVE (Neg); URINE BARBITUATE SCREEN NEGATIVE (Neg); URINE BENZODIAZEPINES SCREEN NEGATIVE (Neg); URINE CANNABINOID SCREEN POSITIVE (Neg); URINE COCAINE SCREEN NEGATIVE (Neg); URINE METHADONE SCREEN NEGATIVE (Neg); URINE OPIATE SCREEN NEGATIVE (Neg); URINE PHENCYCLIDINE SCREEN NEGATIVE (Neg)
[2024-12-01] MEDS: paliperidone palmitate inj 234 MG/1.5 ML SYRINGE IM SCH (13:31)
[2024-12-01 13:48] VITALS: BP 121/75; PULSE 90; RESP 16; TEMP 98; O2SAT 99
== END 2024-12-01 14:43 | disposition still patient (30) ==
LOC: ER 23:55
DX: F20.9 Schizophrenia, unspecified (principal); R45.851 Suicidal ideations; F32.A Depression, unspecified; F12.90 Cannabis use, unspecified, uncomplicated; F15.90 Other stimulant use, unspecified, uncomplicated; Z98.890 Other specified postprocedural states; Z88.5 Allergy status to narcotic agent; Z59.00 Homelessness unspecified; Z20.822 Contact with and (suspected) exposure to COVID-19; Z79.899 Other long term (current) drug therapy; Z88.8 Allergy status to other drugs, medicaments and biological substances
CPT/HCPCS: 36415; 80048; 80305; 80320; 81003; 84443; 85025; 87811; 96372; 99285; J2426

== ENCOUNTER 2025-01-09 23:41 | Emergency (ER) | payer MEDICARE, MEDICAID ==
[~2025-01-09] VITALS: Ht 180.3 cm; Wt 72.5 kg
[~2025-01-09 23:41] MED LIST changes: -ATOR20TA66 PO; -PANT-47 PO
[2025-01-10 01:14] LABS: BASOPHILS % (AUTO) 0.5 % (0-1); EOSINOPHILS # (AUTO) 0.3 X10'3 (0-0.9); EOSINOPHILS % (AUTO) 3.1 % (0-6); HEMATOCRIT 33.2 % (42.0-52.0); HEMOGLOBIN 11.1 g/dl (14.0-17.9); LYMPHOCYTES # (AUTO) 1.6 X10'3 (1.1-4.8); MEAN CORPUSCULAR HEMOGLOBIN 29.2 PG (27.0-31.0); MEAN CORPUSCULAR HGB CONC 33.3 g/dL (33.0-36.5); MEAN CORPUSCULAR VOLUME 87.7 FL (78-98); MEAN PLATELET VOLUME 6.3 FL (7.4-10.4); MONOCYTES # (AUTO) 1.1 X10'3 (0-0.9); MONOCYTES % (AUTO) 13.1 % (2-12); NEUTROPHILS # (AUTO) 5.2 X10'3 (1.8-7.7); NEUTROPHILS % (AUTO) 63.3 % (42-75); PLATELET COUNT 400 X10'3 (140-440); RED BLOOD COUNT 3.79 X10'6 (4.70-6.10); RED CELL DISTRIBUTION WIDTH 13.9 % (11.5-14.5); WHITE BLOOD COUNT 8.2 X10'3 (4.5-11.0)
[2025-01-10 01:37] LABS: ALANINE AMINOTRANSFERASE 19 U/L (12-78); ALBUMIN 2.8 G/DL (3.4-5.0); ALBUMIN/GLOBULIN RATIO 0.8 (1.1-1.5); ALKALINE PHOSPHATASE 106 IU/L (46-116); ANION GAP 5 (8-16); ASPARTATE AMINO TRANSFERASE 18 U/L (10-37); BILIRUBIN,TOTAL 0.1 MG/DL (0.1-1.0); BLOOD UREA NITROGEN 15 MG/DL (7-18); BUN/CREATININE RATIO 23.1 (10.0-20.0); CALCIUM 8.4 MG/DL (8.5-10.1); CHLORIDE 107 MMOL/L (99-107); CREATININE 0.65 MG/DL (0.60-1.10); GLUCOSE 86 MG/DL (70-104); POTASSIUM 3.7 MMOL/L (3.5-5.1); SALICYLATE 2.4 MG/DL (4.0-20.0); SODIUM 140 MMOL/L (135-145); THYROID STIMULATING HORMONE 2.85 ulU/ml (0.34-4.50); TOTAL CARBON DIOXIDE 27.6 MMOL/L (24-32); TOTAL PROTEIN 6.3 G/DL (6.4-8.2); eCRCL 147 ML/MIN; eGFR > 90 ML/MIN
[2025-01-10 01:37] LABS: BILIRUBIN,URINE NEGATIVE (Neg); CLARITY,URINE CLEAR (Clear); COLOR,URINE YELLOW (Yellow); GLUCOSE, URINE NEGATIVE (Neg); KETONES,URINE NEGATIVE (Neg); LEUKOCYTE ESTERASE ,URINE NEGATIVE (Neg); NITRITES, URINE NEGATIVE (Neg); OCCULT BLOOD,URINE NEGATIVE (Neg); PROTEIN,URINE NEGATIVE (Neg); UROBILINOGEN,URINE 0.2 E.U/dL (0.2-1.0)
[2025-01-10 01:41] LABS: UA COLLECTION TYPE URINAL
[2025-01-10 01:49] LABS: ACETAMINOPHEN < 2.0 UG/ML (10-30); ETHANOL < 10 MG/DL (<10)
[2025-01-10 02:01] LABS: URINE AMPHETAMINE SCREEN POSITIVE (Neg); URINE BARBITUATE SCREEN NEGATIVE (Neg); URINE BENZODIAZEPINES SCREEN NEGATIVE (Neg); URINE CANNABINOID SCREEN POSITIVE (Neg); URINE COCAINE SCREEN NEGATIVE (Neg); URINE METHADONE SCREEN NEGATIVE (Neg); URINE OPIATE SCREEN NEGATIVE (Neg); URINE PHENCYCLIDINE SCREEN NEGATIVE (Neg)
[2025-01-10 12:34] VITALS: BP 114/89; PULSE 95; RESP 18; TEMP 98.2; O2SAT 98
== END 2025-01-10 12:41 | disposition home or self-care (01) ==
LOC: ER 23:42
DX: F99 Mental disorder, not otherwise specified (principal); F20.9 Schizophrenia, unspecified; F17.200 Nicotine dependence, unspecified, uncomplicated; Z20.822 Contact with and (suspected) exposure to COVID-19; F12.90 Cannabis use, unspecified, uncomplicated; Z88.5 Allergy status to narcotic agent; Z88.8 Allergy status to other drugs, medicaments and biological substances
CPT/HCPCS: 36415; 80053; 80305; 80329; 81003; 84443; 85025; 87811; 99284; G0480; 80320

== ENCOUNTER 2025-01-30 03:15 | Emergency (ER) | payer MEDICARE, MEDICAID ==
[~2025-01-30] VITALS: Ht 182.9 cm; Wt 79.5 kg
[2025-01-30 03:20] VITALS: BP 106/70; PULSE 99; RESP 18; TEMP 98; O2SAT 95
[2025-01-30] MEDS: OLANZapine 5mg rapidly disint. tablet PO ONE (04:55)
== END 2025-01-30 04:58 | disposition left against medical advice (07) ==
LOC: ER 03:15
DX: F25.9 Schizoaffective disorder, unspecified (principal); Z59.00 Homelessness unspecified; D69.6 Thrombocytopenia, unspecified; F12.929 Cannabis use, unspecified with intoxication, unspecified; F15.129 Other stimulant abuse with intoxication, unspecified; Z88.5 Allergy status to narcotic agent
CPT/HCPCS: 99281; 99283

== ENCOUNTER 2025-01-30 22:49 | Emergency (ER) | payer MEDICARE, MEDICAID ==
[~2025-01-30] VITALS: Ht 180.3 cm; Wt 73.8 kg
[2025-01-31 01:57] LABS: BASOPHILS % (AUTO) 0.3 % (0-1); EOSINOPHILS # (AUTO) 0.1 X10'3 (0-0.9); EOSINOPHILS % (AUTO) 1.3 % (0-6); HEMATOCRIT 34.3 % (42.0-52.0); HEMOGLOBIN 11.4 g/dl (14.0-17.9); LYMPHOCYTES # (AUTO) 1.3 X10'3 (1.1-4.8); LYMPHOCYTES % (AUTO) 11.7 % (21-51); MEAN CORPUSCULAR HEMOGLOBIN 28.6 PG (27.0-31.0); MEAN CORPUSCULAR HGB CONC 33.1 g/dL (33.0-36.5); MEAN CORPUSCULAR VOLUME 86.5 FL (78-98); MEAN PLATELET VOLUME 6.6 FL (7.4-10.4); MONOCYTES # (AUTO) 1.2 X10'3 (0-0.9); MONOCYTES % (AUTO) 10.8 % (2-12); NEUTROPHILS # (AUTO) 8.6 X10'3 (1.8-7.7); NEUTROPHILS % (AUTO) 75.9 % (42-75); PLATELET COUNT 312 X10'3 (140-440); RED BLOOD COUNT 3.97 X10'6 (4.70-6.10); RED CELL DISTRIBUTION WIDTH 14.9 % (11.5-14.5); WHITE BLOOD COUNT 11.4 X10'3 (4.5-11.0)
[2025-01-31 02:06] LABS: ALANINE AMINOTRANSFERASE 31 U/L (12-78); ALBUMIN 2.8 G/DL (3.4-5.0); ALBUMIN/GLOBULIN RATIO 0.7 (1.1-1.5); ALKALINE PHOSPHATASE 131 IU/L (46-116); ANION GAP 6 (8-16); ASPARTATE AMINO TRANSFERASE 20 U/L (10-37); BILIRUBIN,TOTAL 0.5 MG/DL (0.1-1.0); BLOOD UREA NITROGEN 13 MG/DL (7-18); BUN/CREATININE RATIO 17.6 (10.0-20.0); CALCIUM 8.6 MG/DL (8.5-10.1); CHLORIDE 106 MMOL/L (99-107); CREATININE 0.74 MG/DL (0.60-1.10); GLUCOSE 127 MG/DL (70-104); POTASSIUM 3.5 MMOL/L (3.5-5.1); SODIUM 139 MMOL/L (135-145); TOTAL CARBON DIOXIDE 26.6 MMOL/L (24-32); TOTAL PROTEIN 6.7 G/DL (6.4-8.2); eCRCL 132 ML/MIN; eGFR > 90 ML/MIN
[2025-01-31 02:07] LABS: ETHANOL < 10 MG/DL (<10)
[2025-01-31 02:29] LABS: BILIRUBIN,URINE NEGATIVE (Neg); CLARITY,URINE CLEAR (Clear); COLOR,URINE YELLOW (Yellow); GLUCOSE, URINE NEGATIVE (Neg); KETONES,URINE NEGATIVE (Neg); LEUKOCYTE ESTERASE ,URINE NEGATIVE (Neg); NITRITES, URINE NEGATIVE (Neg); OCCULT BLOOD,URINE NEGATIVE (Neg); PROTEIN,URINE NEGATIVE (Neg)
[2025-01-31 02:37] LABS: UA COLLECTION TYPE CLN CATCH MIDSTREAM
[2025-01-31 02:47] LABS: URINE AMPHETAMINE SCREEN POSITIVE (Neg); URINE BARBITUATE SCREEN NEGATIVE (Neg); URINE BENZODIAZEPINES SCREEN NEGATIVE (Neg); URINE CANNABINOID SCREEN POSITIVE (Neg); URINE COCAINE SCREEN NEGATIVE (Neg); URINE METHADONE SCREEN NEGATIVE (Neg); URINE OPIATE SCREEN NEGATIVE (Neg); URINE PHENCYCLIDINE SCREEN NEGATIVE (Neg)
[2025-01-31 10:29] VITALS: BP 138/98; PULSE 98; RESP 16; TEMP 99.4; O2SAT 97
== END 2025-01-31 10:32 | disposition home or self-care (01) ==
LOC: ER 22:53
DX: F29 Unspecified psychosis not due to a substance or known physiological condition (principal); R45.851 Suicidal ideations; F12.90 Cannabis use, unspecified, uncomplicated; F15.90 Other stimulant use, unspecified, uncomplicated; F20.9 Schizophrenia, unspecified; Z88.5 Allergy status to narcotic agent; Z88.8 Allergy status to other drugs, medicaments and biological substances; Z20.822 Contact with and (suspected) exposure to COVID-19
CPT/HCPCS: 36415; 80053; 80305; 81003; 85025; 87811; 99285; G0480; 80320; 99284

== ENCOUNTER 2025-02-09 01:08 | Emergency (ER) | payer MEDICARE, MEDICAID ==
[2025-02-09 02:00] LABS: BASOPHILS % (AUTO) 0.4 % (0-1); EOSINOPHILS # (AUTO) 0.2 X10'3 (0-0.9); EOSINOPHILS % (AUTO) 3.1 % (0-6); HEMATOCRIT 34.2 % (42.0-52.0); HEMOGLOBIN 11.7 g/dl (14.0-17.9); LYMPHOCYTES # (AUTO) 1.6 X10'3 (1.1-4.8); MEAN CORPUSCULAR HEMOGLOBIN 29.7 PG (27.0-31.0); MEAN CORPUSCULAR HGB CONC 34.2 g/dL (33.0-36.5); MEAN PLATELET VOLUME 6.5 FL (7.4-10.4); MONOCYTES # (AUTO) 0.7 X10'3 (0-0.9); MONOCYTES % (AUTO) 9.4 % (2-12); NEUTROPHILS # (AUTO) 5.3 X10'3 (1.8-7.7); NEUTROPHILS % (AUTO) 67.1 % (42-75); PLATELET COUNT 450 X10'3 (140-440); RED BLOOD COUNT 3.93 X10'6 (4.70-6.10); RED CELL DISTRIBUTION WIDTH 15.4 % (11.5-14.5); WHITE BLOOD COUNT 7.9 X10'3 (4.5-11.0)
[2025-02-09 02:22] LABS: ANION GAP 5 (8-16); BLOOD UREA NITROGEN 19 MG/DL (7-18); BUN/CREATININE RATIO 26.8 (10.0-20.0); CALCIUM 8.5 MG/DL (8.5-10.1); CHLORIDE 106 MMOL/L (99-107); CREATININE 0.71 MG/DL (0.60-1.10); GLUCOSE 86 MG/DL (70-104); POTASSIUM 3.4 MMOL/L (3.5-5.1); SODIUM 139 MMOL/L (135-145); THYROID STIMULATING HORMONE 1.59 ulU/ml (0.34-4.50); TOTAL CARBON DIOXIDE 28.1 MMOL/L (24-32); eGFR > 90 ML/MIN
[2025-02-09 02:28] LABS: ETHANOL < 10 MG/DL (<10)
[2025-02-09 07:50] LABS: BILIRUBIN,URINE NEGATIVE (Neg); CLARITY,URINE CLEAR (Clear); COLOR,URINE YELLOW (Yellow); GLUCOSE, URINE NEGATIVE (Neg); KETONES,URINE NEGATIVE (Neg); LEUKOCYTE ESTERASE ,URINE NEGATIVE (Neg); NITRITES, URINE NEGATIVE (Neg); OCCULT BLOOD,URINE NEGATIVE (Neg); PROTEIN,URINE NEGATIVE (Neg); UROBILINOGEN,URINE 0.2 E.U/dL (0.2-1.0)
[2025-02-09 07:56] LABS: UA COLLECTION TYPE VOIDED
[2025-02-09 07:58] LABS: URINE AMPHETAMINE SCREEN POSITIVE (Neg); URINE BARBITUATE SCREEN NEGATIVE (Neg); URINE BENZODIAZEPINES SCREEN NEGATIVE (Neg); URINE CANNABINOID SCREEN POSITIVE (Neg); URINE COCAINE SCREEN NEGATIVE (Neg); URINE METHADONE SCREEN NEGATIVE (Neg); URINE OPIATE SCREEN NEGATIVE (Neg); URINE PHENCYCLIDINE SCREEN NEGATIVE (Neg)
[2025-02-09 12:39] VITALS: BP 148/78; PULSE 102; RESP 16; TEMP 98.2; O2SAT 99
== END 2025-02-09 12:32 | disposition home or self-care (01) ==
LOC: ER 01:09
DX: Z73.6 Limitation of activities due to disability (principal); F20.9 Schizophrenia, unspecified; F12.90 Cannabis use, unspecified, uncomplicated; F15.90 Other stimulant use, unspecified, uncomplicated; Z98.890 Other specified postprocedural states; Z59.00 Homelessness unspecified; Z88.5 Allergy status to narcotic agent; Z88.8 Allergy status to other drugs, medicaments and biological substances; Z79.899 Other long term (current) drug therapy; Z20.822 Contact with and (suspected) exposure to COVID-19
CPT/HCPCS: 36415; 80048; 80305; 81003; 84443; 85025; 87811; 99284; G0480; 80320; 99283

== ENCOUNTER 2025-02-11 01:00 | Emergency (ER) | payer MEDICARE, MEDICAID ==
[~2025-02-11] VITALS: Ht 180.3 cm; Wt 70.5 kg
[2025-02-11 01:16] VITALS: BP 106/69; PULSE 113; O2SAT 97
[2025-02-11 01:47] LABS: BASOPHILS % (AUTO) 0.5 % (0-1); EOSINOPHILS # (AUTO) 0.1 X10'3 (0-0.9); EOSINOPHILS % (AUTO) 1.3 % (0-6); HEMATOCRIT 35.6 % (42.0-52.0); HEMOGLOBIN 11.9 g/dl (14.0-17.9); LYMPHOCYTES # (AUTO) 1.7 X10'3 (1.1-4.8); LYMPHOCYTES % (AUTO) 18.1 % (21-51); MEAN CORPUSCULAR HEMOGLOBIN 29.1 PG (27.0-31.0); MEAN CORPUSCULAR HGB CONC 33.4 g/dL (33.0-36.5); MEAN CORPUSCULAR VOLUME 87.2 FL (78-98); MEAN PLATELET VOLUME 6.6 FL (7.4-10.4); MONOCYTES # (AUTO) 0.7 X10'3 (0-0.9); MONOCYTES % (AUTO) 7.7 % (2-12); NEUTROPHILS # (AUTO) 6.7 X10'3 (1.8-7.7); NEUTROPHILS % (AUTO) 72.4 % (42-75); PLATELET COUNT 475 X10'3 (140-440); RED BLOOD COUNT 4.08 X10'6 (4.70-6.10); RED CELL DISTRIBUTION WIDTH 15.5 % (11.5-14.5); WHITE BLOOD COUNT 9.2 X10'3 (4.5-11.0)
[2025-02-11 02:09] VITALS: RESP 16
[2025-02-11 02:11] LABS: ALBUMIN 3.2 G/DL (3.4-5.0); ANION GAP 6 (8-16); BLOOD UREA NITROGEN 19 MG/DL (7-18); BUN/CREATININE RATIO 22.1 (10.0-20.0); CALCIUM 8.8 MG/DL (8.5-10.1); CHLORIDE 103 MMOL/L (99-107); CREATININE 0.86 MG/DL (0.60-1.10); ETHANOL < 10 MG/DL (<10); GLUCOSE 134 MG/DL (70-104); POTASSIUM 3.8 MMOL/L (3.5-5.1); SODIUM 136 MMOL/L (135-145); THYROID STIMULATING HORMONE 1.39 ulU/ml (0.34-4.50); TOTAL CARBON DIOXIDE 26.9 MMOL/L (24-32); eCRCL 108 ML/MIN; eGFR > 90 ML/MIN
[2025-02-11 02:28] LABS: BILIRUBIN,URINE NEGATIVE (Neg); CLARITY,URINE CLEAR (Clear); COLOR,URINE YELLOW (Yellow); GLUCOSE, URINE NEGATIVE (Neg); KETONES,URINE NEGATIVE (Neg); LEUKOCYTE ESTERASE ,URINE NEGATIVE (Neg); NITRITES, URINE NEGATIVE (Neg); OCCULT BLOOD,URINE NEGATIVE (Neg); PROTEIN,URINE NEGATIVE (Neg); UROBILINOGEN,URINE 0.2 E.U/dL (0.2-1.0)
[2025-02-11 02:34] LABS: UA COLLECTION TYPE CLN CATCH MIDSTREAM
[2025-02-11 02:46] LABS: URINE AMPHETAMINE SCREEN POSITIVE (Neg); URINE BARBITUATE SCREEN NEGATIVE (Neg); URINE BENZODIAZEPINES SCREEN NEGATIVE (Neg); URINE CANNABINOID SCREEN POSITIVE (Neg); URINE COCAINE SCREEN NEGATIVE (Neg); URINE METHADONE SCREEN NEGATIVE (Neg); URINE OPIATE SCREEN NEGATIVE (Neg); URINE PHENCYCLIDINE SCREEN NEGATIVE (Neg)
[2025-02-11] MEDS: OLANZapine 5mg rapidly disint. tablet PO ONE (02:58)
[2025-02-11 05:03] VITALS: TEMP 97.2
== END 2025-02-11 05:15 | disposition home or self-care (01) ==
LOC: ER 01:00
DX: F25.9 Schizoaffective disorder, unspecified (principal); F15.90 Other stimulant use, unspecified, uncomplicated; Z59.00 Homelessness unspecified; Z20.822 Contact with and (suspected) exposure to COVID-19
CPT/HCPCS: 36415; 80048; 80305; 81003; 84443; 85025; 87811; 99283; G0480; 80320

== ENCOUNTER 2025-02-11 12:57 | Emergency (ER) | payer MEDICARE, MEDICAID | END 2025-02-11 14:15 | disposition left against medical advice (07) | LOC: ER 12:57 | DX: R45.851 Suicidal ideations (principal); Z88.5 Allergy status to narcotic agent; Z88.8 Allergy status to other drugs, medicaments and biological substances; Z53.21 Procedure and treatment not carried out due to patient leaving prior to being seen by health care provider ==

== ENCOUNTER 2025-02-18 22:32 | Emergency (ER) | payer MEDICARE, MEDICAID ==
[~2025-02-18] VITALS: Ht 180.3 cm; Wt 70.2 kg
[2025-02-18 22:42] VITALS: PULSE 77; RESP 18; O2SAT 98
[2025-02-19 01:58] VITALS: TEMP 98.6
== END 2025-02-19 02:05 | disposition home or self-care (01) ==
LOC: ER 22:32
DX: F20.9 Schizophrenia, unspecified (principal); Z59.00 Homelessness unspecified; F15.90 Other stimulant use, unspecified, uncomplicated; Z88.5 Allergy status to narcotic agent; Z88.8 Allergy status to other drugs, medicaments and biological substances
CPT/HCPCS: 99281; J7030

== ENCOUNTER 2025-03-02 22:04 | Emergency (ER) | payer MEDICARE, MEDICAID ==
[~2025-03-02] VITALS: Ht 180.3 cm; Wt 71.0 kg
[2025-03-02 22:10] VITALS: TEMP 97.8
--- NOTE | 2025-03-02 23:17 | Physician Documentation ---
History of Present Illness ~ Chief Complaint: Mental Health Eval Stated Complaint: MH EVAL Time Seen by MD: 23:16 Primary Medical Doctor: [facility] Mode of Arrival: Ambulatory HPI Patient presents to the emergency room unusual fashion claiming suicidal ideation Medication Reconciliation Allergies: Coded Allergies: haloperidol (Verified Allergy, Unknown, 03/02/25) morphine (Verified Allergy, Unknown, 03/02/25) Scheduled Paliperidone Palmitate (Invega Sustenna), 1 APPLICATOR IM Q28D, (Reported) Past Medical History Past Medical History: Schizophrenia Past Surgical History: orthopedic surgeries Patient History: Patient reports no known family medical history. Alcohol Use: None Drug Use: marijuana, methamphetamine Lives In: Homeless Occupation: retired Review of Systems ROS All review of systems negative except as per HPI Physical Exam Vital Signs: Temperature: 97.8, Source: Temporal, Heart Rate: 106, Respiratory Rate: 16, BP: 156/80, Pulse Oximetry: 100, Weight: 71.000 Physical Exam General: Patient is awake, alert, oriented x4 in no acute distress, disheveled Head: Normocephalic and atraumatic. Eyes: Conjunctival normal. EOMI. PERRL. ENT: Mucous membranes moist. Neck: Supple, trachea is midline. Chest: Clear to auscultation bilaterally without rales, rhonchi, or wheezes. There is no accessory muscle use or retractions. Cardiac: RRR without murmurs, gallops, or rubs. Psych: Cooperative, poor eye contact, suicidal Progress Results/Orders Results/Orders Orders - NINO WARREN MD Covid19 Binax Poc Result Entry (03/02/25 22:40) Med Rec (03/02/25 23:17) 1799.11 (03/02/25 23:17) Close Observation Level (03/02/25 23:17) Substance Use Navigator (03/02/25 23:17) Regular Diet (03/03/25 Breakfast) Completed Orders - NINO WARREN MD Cbc/Diff (03/02/25 23:17) Urinalysis (03/02/25 23:17) Drug Screen, Urine (03/02/25 23:17) Ethanol (03/02/25 23:17) BMP (03/02/25 23:17) Vital Signs 03/02/25 03/02/25 22:10 22:40 Temp 97.8 Pulse 106 Resp 21 16 B/P (MAP) 156/80 Pulse Ox 100 Laboratory Tests Test 03/02/25 22:25 03/02/25 22:30 03/02/25 23:23 Urine Specimen Description Cln catch midstream Urine Color Yellow Urine Clarity Clear Urine pH 6.0 Urine Specific [place] 1.025 Urine Protein Negative Urine Glucose (UA) Negative Urine Ketones Negative Urine Occult Blood Negative Urine Nitrite Negative Urine Bilirubin Negative Urine Urobilinogen 0.2 Urine Leukocyte Esterase Negative Volume Urine Centrifuged 10 ml Urine Comment Urine Opiates Screen Negative Urine Methadone Screen Negative Urine Fentanyl Screen Negative Urine Barbiturates Screen Negative Urine Phencyclidine Screen Negative Urine Amphetamines Screen Positive Urine Benzodiazepines Screen Negative Urine Cocaine Screen Negative Urine Cannabinoids Screen Positive Drug Screen Comment SARS-CoV-2 Antigen (Rapid) Negative White Blood Count 6.3 Red Blood Count 4.17 L Hemoglobin 12.0 L Hematocrit 35.5 L Mean Corpuscular Volume 85.2 Mean Corpuscular Hemoglobin 28.8 Mean Corpuscular Hemoglobin Concent 33.8 Red Cell Distribution Width 16.5 H Platelet Count 258 Mean Platelet Volume 7.0 L Neutrophils (%) (Auto) 50.9 Lymphocytes (%) (Auto) 32.0 Monocytes (%) (Auto) 10.6 Eosinophils (%) (Auto) 6.0 Basophils (%) (Auto) 0.5 Neutrophils # (Auto) 3.2 Lymphocytes # (Auto) 2.0 Monocytes # (Auto) 0.7 Eosinophils # (Auto) 0.4 Basophils # (Auto) 0.0 CBC Comment Sodium Level 142 Potassium Level 3.5 Chloride Level 107 Carbon Dioxide Level 27.9 Anion Gap 7 L Blood Urea Nitrogen 19 H Creatinine 0.82 Estimated GFR/1.73 m2 > 90 BUN/Creatinine Ratio 23.2 H Glucose Level 94 Calcium Level 8.3 L Albumin 3.0 L Chemistry Comments Ethyl Alcohol Level < 10 Medical Decision Making Findings Patient presented to the emergency room with suicidal ideation. Labs reviewed and there was no evidence of major pathologic derangements and patient was medically cleared for mental health evaluation Differential Dx:Considerations: Include: Anxiety, Bipolar disorder, Conversion disorder, Depression, Schizophrenia, Substance abuse, Suicidal Departure Disposition: 30 STILL A PATIENT Impression: Primary Impression: Suicidal ideation Condition: Guarded Referrals: NO PRIMARY CARE PROVIDER (PCP) Signature Scribe Signature: no scribe Attestation: The note accurately reflects work and decisions made by me.Nino Warren MD 03/03/25 00:17 NINO WARREN MD Mar 02, 2025 23:17
[2025-03-02 23:29] LABS: BILIRUBIN,URINE NEGATIVE (Neg); CLARITY,URINE CLEAR (Clear); COLOR,URINE YELLOW (Yellow); GLUCOSE, URINE NEGATIVE (Neg); KETONES,URINE NEGATIVE (Neg); LEUKOCYTE ESTERASE ,URINE NEGATIVE (Neg); NITRITES, URINE NEGATIVE (Neg); OCCULT BLOOD,URINE NEGATIVE (Neg); PROTEIN,URINE NEGATIVE (Neg); UROBILINOGEN,URINE 0.2 E.U/dL (0.2-1.0)
[2025-03-02 23:32] LABS: BASOPHILS % (AUTO) 0.5 % (0-1); EOSINOPHILS # (AUTO) 0.4 X10'3 (0-0.9); HEMATOCRIT 35.5 % (42.0-52.0); MEAN CORPUSCULAR HEMOGLOBIN 28.8 PG (27.0-31.0); MEAN CORPUSCULAR HGB CONC 33.8 g/dL (33.0-36.5); MEAN CORPUSCULAR VOLUME 85.2 FL (78-98); MONOCYTES # (AUTO) 0.7 X10'3 (0-0.9); MONOCYTES % (AUTO) 10.6 % (2-12); NEUTROPHILS # (AUTO) 3.2 X10'3 (1.8-7.7); NEUTROPHILS % (AUTO) 50.9 % (42-75); PLATELET COUNT 258 X10'3 (140-440); RED BLOOD COUNT 4.17 X10'6 (4.70-6.10); RED CELL DISTRIBUTION WIDTH 16.5 % (11.5-14.5); WHITE BLOOD COUNT 6.3 X10'3 (4.5-11.0)
[2025-03-02 23:36] LABS: URINE AMPHETAMINE SCREEN POSITIVE (Neg); URINE BARBITUATE SCREEN NEGATIVE (Neg); URINE BENZODIAZEPINES SCREEN NEGATIVE (Neg); URINE CANNABINOID SCREEN POSITIVE (Neg); URINE COCAINE SCREEN NEGATIVE (Neg); URINE METHADONE SCREEN NEGATIVE (Neg); URINE OPIATE SCREEN NEGATIVE (Neg); URINE PHENCYCLIDINE SCREEN NEGATIVE (Neg)
[2025-03-02 23:37] LABS: UA COLLECTION TYPE CLN CATCH MIDSTREAM
[2025-03-02 23:40] LABS: ANION GAP 7 (8-16); BLOOD UREA NITROGEN 19 MG/DL (7-18); BUN/CREATININE RATIO 23.2 (10.0-20.0); CALCIUM 8.3 MG/DL (8.5-10.1); CHLORIDE 107 MMOL/L (99-107); CREATININE 0.82 MG/DL (0.60-1.10); GLUCOSE 94 MG/DL (70-104); POTASSIUM 3.5 MMOL/L (3.5-5.1); SODIUM 142 MMOL/L (135-145); TOTAL CARBON DIOXIDE 27.9 MMOL/L (24-32); eCRCL 114 ML/MIN; eGFR > 90 ML/MIN
[2025-03-02 23:50] LABS: ETHANOL < 10 MG/DL (<10)
[2025-03-03 12:27] VITALS: BP 156/80; PULSE 106; RESP 20; O2SAT 100
== END 2025-03-03 12:30 | disposition home or self-care (01) ==
LOC: ER 22:04
DX: R45.851 Suicidal ideations (principal); F20.9 Schizophrenia, unspecified; F12.90 Cannabis use, unspecified, uncomplicated; F15.90 Other stimulant use, unspecified, uncomplicated; Z88.5 Allergy status to narcotic agent; Z88.8 Allergy status to other drugs, medicaments and biological substances; Z79.899 Other long term (current) drug therapy; Z98.890 Other specified postprocedural states; Z59.00 Homelessness unspecified; Z20.822 Contact with and (suspected) exposure to COVID-19
CPT/HCPCS: 36415; 80048; 80305; 81003; 85025; 87811; 99285; G0480; 80320

== ENCOUNTER 2025-03-05 04:48 | Emergency (ER) | payer MEDICARE, MEDICAID ==
[~2025-03-05] VITALS: Ht 170.2 cm; Wt 72.2 kg
[2025-03-05] MEDS ORDERED: OLANZapine 2.5MG tablet PO SCH (05:15)
[2025-03-05] MEDS: OLANZapine 2.5MG tablet PO ONE (05:50)
[2025-03-05 05:53] LABS: BASOPHILS % (AUTO) 0.5 % (0-1); EOSINOPHILS # (AUTO) 0.3 X10'3 (0-0.9); EOSINOPHILS % (AUTO) 3.8 % (0-6); HEMATOCRIT 39.1 % (42.0-52.0); HEMOGLOBIN 12.9 g/dl (14.0-17.9); LYMPHOCYTES # (AUTO) 1.4 X10'3 (1.1-4.8); LYMPHOCYTES % (AUTO) 21.9 % (21-51); MEAN CORPUSCULAR HEMOGLOBIN 28.5 PG (27.0-31.0); MEAN CORPUSCULAR HGB CONC 32.9 g/dL (33.0-36.5); MEAN CORPUSCULAR VOLUME 86.6 FL (78-98); MEAN PLATELET VOLUME 7.3 FL (7.4-10.4); MONOCYTES # (AUTO) 0.5 X10'3 (0-0.9); MONOCYTES % (AUTO) 7.6 % (2-12); NEUTROPHILS # (AUTO) 4.4 X10'3 (1.8-7.7); NEUTROPHILS % (AUTO) 66.2 % (42-75); PLATELET COUNT 296 X10'3 (140-440); RED BLOOD COUNT 4.52 X10'6 (4.70-6.10); RED CELL DISTRIBUTION WIDTH 16.5 % (11.5-14.5); WHITE BLOOD COUNT 6.6 X10'3 (4.5-11.0)
[2025-03-05 06:08] LABS: ALBUMIN 3.6 G/DL (3.4-5.0); ANION GAP 5 (8-16); BLOOD UREA NITROGEN 19 MG/DL (7-18); BUN/CREATININE RATIO 29.7 (10.0-20.0); CALCIUM 9.1 MG/DL (8.5-10.1); CHLORIDE 104 MMOL/L (99-107); CREATININE 0.64 MG/DL (0.60-1.10); GLUCOSE 92 MG/DL (70-104); POTASSIUM 4.8 MMOL/L (3.5-5.1); SODIUM 139 MMOL/L (135-145); TOTAL CARBON DIOXIDE 30.4 MMOL/L (24-32); eCRCL 136 ML/MIN; eGFR > 90 ML/MIN
[2025-03-05 06:30] LABS: ETHANOL < 10 MG/DL (<10)
[2025-03-05 06:41] VITALS: BP 126/68; PULSE 70; RESP 18; O2SAT 99
[2025-03-05 07:09] LABS: BILIRUBIN,URINE NEGATIVE (Neg); CLARITY,URINE CLEAR (Clear); COLOR,URINE YELLOW (Yellow); GLUCOSE, URINE NEGATIVE (Neg); KETONES,URINE NEGATIVE (Neg); LEUKOCYTE ESTERASE ,URINE NEGATIVE (Neg); NITRITES, URINE NEGATIVE (Neg); OCCULT BLOOD,URINE NEGATIVE (Neg); PROTEIN,URINE NEGATIVE (Neg); UROBILINOGEN,URINE 0.2 E.U/dL (0.2-1.0)
[2025-03-05 07:13] LABS: UA COLLECTION TYPE CLN CATCH MIDSTREAM
[2025-03-05 07:46] LABS: URINE AMPHETAMINE SCREEN POSITIVE (Neg); URINE BARBITUATE SCREEN NEGATIVE (Neg); URINE BENZODIAZEPINES SCREEN NEGATIVE (Neg); URINE CANNABINOID SCREEN POSITIVE (Neg); URINE COCAINE SCREEN NEGATIVE (Neg); URINE METHADONE SCREEN NEGATIVE (Neg); URINE OPIATE SCREEN NEGATIVE (Neg); URINE PHENCYCLIDINE SCREEN NEGATIVE (Neg)
[2025-03-05 13:10] VITALS: TEMP 97.6
== END 2025-03-05 13:16 | disposition home or self-care (01) ==
LOC: ER 04:50
DX: F15.129 Other stimulant abuse with intoxication, unspecified (principal); F29 Unspecified psychosis not due to a substance or known physiological condition; F20.9 Schizophrenia, unspecified; Z20.822 Contact with and (suspected) exposure to COVID-19; Z88.5 Allergy status to narcotic agent; Z88.8 Allergy status to other drugs, medicaments and biological substances
CPT/HCPCS: 36415; 80048; 80305; 81003; 85025; 87811; 99283; G0480; 80320

== ENCOUNTER 2025-03-06 23:07 | Inpatient (IN) | payer MEDICARE, MEDICAID ==
[~2025-03-06] VITALS: Ht 180.3 cm; Wt 70.2 kg
--- NOTE | 2025-03-06 23:47 | Physician Documentation ---
History of Present Illness ~ Chief Complaint: Mental Health Eval Stated Complaint: MH EVAL Time Seen by MD: 23:37 OK to notify your PCP?: Yes Primary Medical Doctor: [facility] Source: patient Mode of Arrival: POV Exam Limitations: no limitations HPI This is a 44-year-old local homeless individual who has a history of schizophrenia. The patient was here frequently for typically homeless or psychiatric issues. Tonight the patient was stating that he can no longer take care of himself. He states it he was not making it out on the streets. He says that he was urinating and defecating on himself and can no longer care for himself. He states he feels like he does not want to live but he does not give a specific plan or admit to SI. Medication Reconciliation Allergies: Coded Allergies: haloperidol (Verified Allergy, Unknown, 03/02/25) morphine (Verified Allergy, Unknown, 03/02/25) Miscellaneous Medications Home Med List (No Home Medications), (Reported) Discontinued Medications Paliperidone Palmitate (Invega Sustenna), 1 APPLICATOR IM Q28D, (Reported) Discontinued Reason: patient no longer taking Past Medical History Past Medical History: Bipolar, Psychosis, Schizophrenia Past Surgical History: orthopedic surgeries Patient History: Patient reports no known family medical history. 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 He goes and a lot of different directions with his thoughts.) Affect: hysterical Skin: warm/dry, normal color Progress Results/Orders Results/Orders Orders - DION FERGUSON Med Rec (03/06/25 23:47) 1799.11 (03/06/25 23:47) Close Observation Level (03/06/25 23:47) Covid19 Binax Poc Result Entry (03/06/25 23:47) Regular Diet (03/07/25 Breakfast) Completed Orders - DION FERGUSON Cbc/Diff (03/06/25 23:47) Urinalysis (03/06/25 23:47) Drug Screen, Urine (03/06/25 23:47) Ethanol (03/06/25 23:47) Acetaminophen (03/06/25 23:47) Salicylate (03/06/25 23:47) BMP (03/06/25 23:47) Vital Signs 03/06/25 03/07/25 23:11 00:14 Temp 98.0 Pulse 63 Resp 16 16 B/P (MAP) Pulse Ox 100 O2 Flow Rate 0 Laboratory Tests Test 03/06/25 23:59 03/07/25 00:20 White Blood Count 6.6 Red Blood Count 4.20 L Hemoglobin 12.0 L Hematocrit 36.0 L Mean Corpuscular Volume 85.7 Mean Corpuscular Hemoglobin 28.5 Mean Corpuscular Hemoglobin Concent 33.2 Red Cell Distribution Width 16.2 H Platelet Count 275 Mean Platelet Volume 7.1 L Neutrophils (%) (Auto) 50.4 Lymphocytes (%) (Auto) 32.6 Monocytes (%) (Auto) 12.1 H Eosinophils (%) (Auto) 4.2 Basophils (%) (Auto) 0.7 Neutrophils # (Auto) 3.3 Lymphocytes # (Auto) 2.2 Monocytes # (Auto) 0.8 Eosinophils # (Auto) 0.3 Basophils # (Auto) 0.0 CBC Comment Sodium Level 141 Potassium Level 3.9 Chloride Level 107 Carbon Dioxide Level 28.5 Anion Gap 6 L Blood Urea Nitrogen 17 Creatinine 0.90 Estimated GFR/1.73 m2 > 90 BUN/Creatinine Ratio 18.9 Glucose Level 116 H Calcium Level 8.4 L Albumin 3.3 L Chemistry Comments Salicylates Level 3.1 L Acetaminophen Level < 2.0 L Ethyl Alcohol Level < 10 SARS-CoV-2 Antigen (Rapid) Negative Medical Decision Making Findings The patient was states that is he was no longer able to care for himself and is defecating on himself. When I speak with him he was all over the place with his thoughts. I will place the patient on a 1798 hold for gravely disabled. Differential Diagnosis Schizophrenia. Homeless. Polysubstance abuse. Gravely disabled. Unable to care for self. Departure Disposition: 30 STILL A PATIENT Impression: Primary Impression: Gravely disabled Condition: Stable Additional Instructions: The patient was medically evaluated and cleared for mental health evaluation. Referrals: NO PRIMARY CARE PROVIDER (PCP) Signature Scribe Signature: No scribe Attestation: The note accurately reflects work and decisions made by me.Dion TOBAR 03/07/25 14:39 DION FERGUSON Mar 06, 2025 23:47
[2025-03-07 00:26] LABS: BASOPHILS % (AUTO) 0.7 % (0-1); EOSINOPHILS # (AUTO) 0.3 X10'3 (0-0.9); EOSINOPHILS % (AUTO) 4.2 % (0-6); LYMPHOCYTES # (AUTO) 2.2 X10'3 (1.1-4.8); LYMPHOCYTES % (AUTO) 32.6 % (21-51); MEAN CORPUSCULAR HEMOGLOBIN 28.5 PG (27.0-31.0); MEAN CORPUSCULAR HGB CONC 33.2 g/dL (33.0-36.5); MEAN CORPUSCULAR VOLUME 85.7 FL (78-98); MEAN PLATELET VOLUME 7.1 FL (7.4-10.4); MONOCYTES # (AUTO) 0.8 X10'3 (0-0.9); MONOCYTES % (AUTO) 12.1 % (2-12); NEUTROPHILS # (AUTO) 3.3 X10'3 (1.8-7.7); NEUTROPHILS % (AUTO) 50.4 % (42-75); PLATELET COUNT 275 X10'3 (140-440); RED CELL DISTRIBUTION WIDTH 16.2 % (11.5-14.5); WHITE BLOOD COUNT 6.6 X10'3 (4.5-11.0)
[2025-03-07 00:27] LABS: ALBUMIN 3.3 G/DL (3.4-5.0); ANION GAP 6 (8-16); BLOOD UREA NITROGEN 17 MG/DL (7-18); BUN/CREATININE RATIO 18.9 (10.0-20.0); CALCIUM 8.4 MG/DL (8.5-10.1); CHLORIDE 107 MMOL/L (99-107); ETHANOL < 10 MG/DL (<10); GLUCOSE 116 MG/DL (70-104); POTASSIUM 3.9 MMOL/L (3.5-5.1); SALICYLATE 3.1 MG/DL (4.0-20.0); SODIUM 141 MMOL/L (135-145); TOTAL CARBON DIOXIDE 28.5 MMOL/L (24-32); eCRCL 106 ML/MIN; eGFR > 90 ML/MIN
[2025-03-07 00:31] LABS: ACETAMINOPHEN < 2.0 UG/ML (10-30)
[2025-03-07] MEDS ORDERED: NO HOME MEDS (01:08)
[2025-03-07 12:36] LABS: BILIRUBIN,URINE NEGATIVE (Neg); CLARITY,URINE CLEAR (Clear); COLOR,URINE YELLOW (Yellow); GLUCOSE, URINE NEGATIVE (Neg); KETONES,URINE NEGATIVE (Neg); LEUKOCYTE ESTERASE ,URINE NEGATIVE (Neg); NITRITES, URINE NEGATIVE (Neg); OCCULT BLOOD,URINE NEGATIVE (Neg); PH,URINE 6.5 (4.8-8.0); PROTEIN,URINE NEGATIVE (Neg); UROBILINOGEN,URINE 0.2 E.U/dL (0.2-1.0)
[2025-03-07 12:39] LABS: UA COLLECTION TYPE URINAL
[2025-03-07 12:55] LABS: URINE AMPHETAMINE SCREEN POSITIVE (Neg); URINE BARBITUATE SCREEN NEGATIVE (Neg); URINE BENZODIAZEPINES SCREEN NEGATIVE (Neg); URINE CANNABINOID SCREEN POSITIVE (Neg); URINE COCAINE SCREEN NEGATIVE (Neg); URINE METHADONE SCREEN NEGATIVE (Neg); URINE OPIATE SCREEN NEGATIVE (Neg); URINE PHENCYCLIDINE SCREEN NEGATIVE (Neg)
[2025-03-07 15:21] VITALS: BP 110/62; PULSE 88; RESP 12; TEMP 97.5; O2SAT 97
[2025-03-07] MEDS ORDERED: mag hydrox/Alum hydrox/simeth 30ml oral suspension PO PRN (15:30)
[2025-03-07] MEDS ORDERED: loperamide 2mg capsule PO PRN (15:30)
[2025-03-07] MEDS ORDERED: acetaminophen 325mg tablet PO PRN ×2 (15:30)
[2025-03-07] MEDS ORDERED: traZODone 50mg tablet PO PRN (15:30)
[2025-03-07] MEDS ORDERED: hydrOXYzine 25 MG tablet PO PRN (15:30)
[2025-03-07] MEDS ORDERED: magnesium hydroxide 30ml (MOM) UD suspension PO PRN (15:30)
[2025-03-07] MEDS ORDERED: NICOTINE POLACRILEX 2 MG LOZENGE BC PRN (15:30)
[2025-03-07] MEDS: quetiapine 100mg tablet PO PRN (16:38)
[2025-03-07 16:48] VITALS: RESP 12; O2SAT 97
[2025-03-07 19:00] VITALS: PULSE 65; RESP 20; TEMP 98; O2SAT 100
[2025-03-07 20:00] VITALS: BP 0/0; PULSE 65; RESP 20; TEMP 98; O2SAT 100
[2025-03-08 07:00] VITALS: RESP 16
[2025-03-08 08:00] VITALS: RESP 16
[2025-03-08] MEDS: nicotine 21mg patch - 24 hr TD SCH (08:00)
[2025-03-08] MEDS: quetiapine 100mg tablet PO ONE (09:25)
--- NOTE | 2025-03-08 09:28 | HISTORY AND PHYSICAL ---
History of Present Illness Primary Medical Doctor: [facility] History of Present Illness Patient admitted on 5150 DTS- presents with psychosis, UDS positive for methamphetamines and marijuana, he is paranoid, accusing the unit and me for stealing his SSI, he relocated from [place] a few months ago, he came here to get his check which he still have not received, states he has already informed the FBI about the " town's conspiracy to defraud him of his money" Was aggressive during the assessment, refused to answer questions and was excused from the interview. Allergies: Coded Allergies: haloperidol (Verified Allergy, Unknown, 03/02/25) morphine (Verified Allergy, Unknown, 03/02/25) Past Psychiatric History Psychiatric History Patient presents with psychosis, not able to obtain information at this time Past Medical History Past Medical History: Bipolar, Psychosis, Schizophrenia Past Surgical History Past Surgical History: orthopedic surgeries Past Family History Patient History: Patient reports no known family medical history. Past Social History Smoking: Cigarettes Alcohol Use: None Drug Use: Marijuana, Methamphetamine Lives In: Homeless Occupation: retired Personal History Amphetamines: Yes Marital Status: Single Do you Work: No Is Patient on Conservatorship: No Mental Status Exam OBSERVATION Appearnace: Disheveled Speech: Tangential, Pressured Eye Contact: Intense Motor Activity: Restless Affect: Labile MOOD Mood: Irritable COGNITION Orientation Impairment: Place, Person Memory Impairment: None Attention: Distracted PERCEPTION Hallucinations: Auditory THOUGHTS Suicidality: None Delusions: Grandiose BEHAVIOR Behavior: Agitated, Paranoid INSIGHT Insight: Poor Judgment: Poor Assessment/Plan Problems/Diagnosis: (1) Psychosis (2) Schizoaffective disorder (3) Methamphetamine abuse Additional Plan Medication management: Seroquel 300 mg now then hs daily Seroquel 100 mg q morning and noon Continue Q 15 safety check Legal: 5150 CODING VISIT-PSYCHIATRY Date of Service: Mar 08, 2025 Billing Provider: TIFFANIE GALINDO DNP Psych Common Visit Codes: 21235-[id number] INP/OBS CARE (High) TIFFANIE GALINDO DNP Mar 08, 2025 09:28
[2025-03-08] MEDS: diphenhydrAMINE 25mg capsule PO PRN (10:52)
[2025-03-08] MEDS: quetiapine 100mg tablet PO SCH ×2 (12:30→20:04)
[2025-03-08 19:03] VITALS: RESP 16
[2025-03-08 19:16] VITALS: RESP 16
--- NOTE | 2025-03-08 20:40 | HISTORY AND PHYSICAL-Residence ---
History & Physical Providers to Resident Creating Document: LORRAINE THOMPSON RES ~ History of Present Illness Primary Medical Doctor: [facility] Reason for Admit\Complaint: Psychosis History of Present Illness Patient is a 44-year-old male, was admitted for management of psychosis, methamphetamine abuse and schizoaffective disorder. Patient was somnolent, did not reply to most of the questions asked. He denied any medical complaints and denied any past medical history. He also denied using illicit use of drugs, but however his toxicology was positive for methamphetamines. Allergies: Coded Allergies: haloperidol (Verified Allergy, Unknown, 03/02/25) morphine (Verified Allergy, Unknown, 03/02/25) Home Medications Home Medications Active Reported No Home Medications (Home Med List) Each Past Medical History Past Medical History Denied any medical complaints Past Surgical History Surgical History Comment Denied surgical history Family History Family History: Patient reports no known family medical history. Past Social History Social History Comment Denied smoking, alcohol illicit use of drugs Smoking: Cigarettes Alcohol Use: None Drug Use: Marijuana, Methamphetamine Lives In: Homeless Occupation: retired ROS ROS Reviewed in full. All negative except for pertinent positive HPI. Exam Vitals: Vital Signs Date Time Temp Pulse Resp B/P (MAP) Pulse Ox O2 Delivery O2 Flow Rate FiO2 03/08/25 19:16 16 Room Air 03/07/25 20:00 98.0 65 0/0 (0) 100 03/06/25 23:11 0 General: Awake , alert, and oriented x4, resting comfortably in the bed, in no acute distress HEENT: Atraumatic, normocephalic, EOMI, anicteric sclera ; pink conjunctiva Neck: Trachea midline. Supple, full range of motion, no JVD Cardiac: Regular rhythm, regular rate with no murmurs all over the precordium. Respiratory: Equal breath sounds bilaterally, no tachypnea, no wheezing ,rub or rales, Chest wall is symmetric and without deformity. Gastrointestinal: Abdomen symmetric, non-distended, soft, non-tender, normal bowel sounds x4 quadrant, normoactive, no hepatosplenomegaly Musculoskeletal: No pedal edema Neurological: Speech is clear, alert, and oriented x 4. No motor or sensory deficit, deep tendon reflexes normal, cerebellar intact. Cranial nerves II-XII intact. Skin: Warm and dry Diagnostic Data Last Recorded Lab Results: 03/06/25 2359 03/06/252358 Advance Care Planning Advanced Care plannin - 30 Minutes Additional Plan (1) Psychosis (2) Schizoaffective disorder (3) Methamphetamine abuse Continue Seroquel 300 mg now then hs daily Continue Seroquel 100 mg q morning and noon Management as per psychiatry Mild hyperglycemia: A1c ordered UTox positive for amphetamines and cannabinoids Labs reviewed Lorraine Thompson MD Internal Medicine Resident, PGY-1 Date of Service: Mar 08, 2025 Billing Provider: PAULO SALINAS MD,LORRAINE, RES Mar 08, 2025 20:40
[2025-03-09 07:00] VITALS: RESP 14; O2SAT 99
[2025-03-09 08:00] VITALS: BP 98/66; PULSE 102; RESP 14; TEMP 97.6; O2SAT 99
[2025-03-09] MEDS: chlorproMAZINE 25mg tablet PO PRN (12:00)
--- NOTE | 2025-03-09 13:15 | PROGRESS NOTE ---
Progress Note Dictate Providers to CC ~ Antibiotic Ordered?: No MRSA Education MRSA Education Provided to pt: No Objective Vitals Vital Signs Date Time Temp Pulse Resp B/P (MAP) Pulse Ox O2 Delivery O2 Flow Rate FiO2 03/09/25 08:00 97.6 102 14 98/66 (77) 99 Room Air 03/06/25 23:11 0 Lab Results: 03/06/25 2359 03/06/25 2359 Problem\\Assessment\\Plan Problems/Diagnosis: (1) Psychosis (2) Schizoaffective disorder (3) Methamphetamine abuse Psychiatrist's Progress Note Date of Service: March 09, 2025 Notes History of Present Illness Patient admitted on 5150 DTS- presents with psychosis, UDS positive for methamphetamines and marijuana, he is paranoid, accusing the unit and me for stealing his SSI, he relocated from [place] a few months ago, he came here to get his check which he still have not received, states he has already informed the FBI about the " town's conspiracy to defraud him of his money" Was aggressive during the assessment, refused to answer questions and was excused from the interview. Assessment Pt evalutaed in the conference room, he had slept nearly all day and night yesterday, today, he presents as more clear-heade, reports feeling better and requests to be discharged, with a request for discharge. Patient is showing good progress, no delusion/paranoia or any acute psychiatric symptoms reported/noted. The improvement in patient symptoms suggests he is getting to baseline but due to his the psychosis exhibited yesterday, he will be observed overnight with plan to discharge tomorrow, contingent upon continued stabilization. The current medication regimen will be maintained unless changes are warranted. Mental Status Exam Appearance: Disheveled Speech: normal rate/tone Eye Contact: good Motor Activity: Rcalm Affect: congruent Mood: "better" Orientation Impairment: Place, Person, situation Memory Impairment: None Attention: alert Hallucinations: denies Suicidality: None Delusions: none Behavior: calm Insight: fair Judgment: fair Medication management: Seroquel 300 mg now then hs daily Seroquel 100 mg q morning and noon Continue Q 15 safety check Legal: 5150 CODING VISIT-PSYCHIATRY Date of Service: March 09, 2025 Billing Provider: TIFFANIE GALINDO DNP Psych Common Visit Codes: [id number] INP/OBS CARE(Mod) TIFFANIE GALINDO DNP March 09, 2025 13:15
[2025-03-09] MEDS ORDERED: QUET100T34 PO (13:41)
[2025-03-09 18:34] VITALS: RESP 14
[2025-03-09 19:49] VITALS: RESP 16
[2025-03-10 07:00] VITALS: RESP 16
--- NOTE | 2025-03-10 16:12 | DISCHARGE SUMMARY ---
Discharge Summary Providers to CC ~ Discharge Summary Admission Diagnosis: Psychosis Hospital Course DATE OF ADMISSION: 03/07/25 DATE OF DISCHARGE: Discharge Diagnosis\Comment: Nixon was admitted on 5150 DTS, he was experiencing psychosis characterized by delusions and paranoia. Urine drug screen was positive for methamphetamine and marijuana. He was treated with Seroquel 300 mg q hs and 100 mg q am and noon.Medical concerns evaluated and managed by the hospitalist team. Initially Nixon spend a significant amount of time sleeping, he woke up in 24 hours with his mental status was clear, with no signs of psychosis Mental Status Examination (MSE) at Discharge: Appearance: Appropriately dressed and groomed. Behavior: Calm and cooperative. Speech: Normal rate and volume. Mood: Stable. Affect: Congruent with mood. Thought Process: Logical and coherent. Thought Content: No delusions or paranoia; denies hallucinations. Cognition: Alert and oriented to person, place, and time. Insight and Judgment: Improved insight; judgment is fair Operations\Procedures: n/a Consultants: The decision to discharge patient was made in collaboration with patient ALEXANDER and the unit Charge Nurse Complications: none Condition on DC: Stable 2 or more antipsychotic used: Yes 2/more antipsychotic addressed: Yes Does Patient smoke: Yes Smoking education given.: Yes New Medications: Quetiapine Fumarate (Quetiapine Fumarate) 100 Mg Tablet 300 MG PO HS for 14 Days, #45 TAB Discontinued Medications: Home Med List (No Home Medications) Each Discharge Summary: Discharged to the [facility] for continued support and stability. At discharge, Nixon is assessed to be at low risk for harm to himself or others. He denies any suicidal or homicidal ideation and has a stable discharge plan in place. Discharged with a 14-day supply of Seroquel as prescribed. Nixon is to follow up with his primary mental health provider for his monthly injection of Invega Sustenna Safety and Support: Nixon has been provided with resources and guidance to maintain his mental health stability and prevent relapse. Instructions for Follow-Up: Ensure timely follow-up with his mental health provider to receive his Invega Clark stenna injection. Continue taking medications as prescribed. Engage in outpatient mental health services and any recommended therapies. Emergency Contacts: National Suicide Prevention Lifeline: Local emergency services: 911 *Problems/Diagnosis: (1) Psychosis Status: Resolved (2) Schizoaffective disorder Status: Chronic (3) Methamphetamine abuse Status: Chronic Total Time Spent on D/C: > 30 Minutes Counseling Services Smoking & Tobacco Cessation: > 10 Minutes CODING VISIT-PSYCHIATRY Date of Service: March 10, 2025 Billing Provider: TIFFANIE GALINDO DNP Psych Common Visit Codes: 50471-WAT/OBS DISCH DAY >30min Psych Secondary Visit Codes: [id number] CHNG SMOKING >10MIN TIFFANIE GALINDO DNP March 10, 2025 16:07
== END 2025-03-10 09:15 | disposition home or self-care (01) | DRG 885 ==
LOC: ER 23:07 → ED HOLD 03-07 05:30 → UNDOADMIN 03-07 05:30 → ED HOLD 03-07 15:21 → ADULT MH 03-07 15:24 → ED HOLD 03-07 15:24 → ADULT MH 03-07 17:22
PROVIDERS: ADMIT Psychiatry & Neurology Psychiatry; ATTEND Psychiatry & Neurology Psychiatry
DX: F25.9 Schizoaffective disorder, unspecified (principal); Z59.00 Homelessness unspecified; F29 Unspecified psychosis not due to a substance or known physiological condition; Z20.822 Contact with and (suspected) exposure to COVID-19; F17.210 Nicotine dependence, cigarettes, uncomplicated; F15.10 Other stimulant abuse, uncomplicated; Z88.5 Allergy status to narcotic agent; Z79.899 Other long term (current) drug therapy
CPT/HCPCS: 36415; 80048; 80305; 80320; 80329; 81003; 85025; 87081; 87811; 99285; Q0161; Q0163

== ENCOUNTER 2025-03-27 23:25 | Emergency (ER) | payer MEDICARE, MEDICAID ==
[~2025-03-27] VITALS: Ht 180.3 cm; Wt 65.2 kg
[~2025-03-27 23:25] MED LIST changes: -PALI234D IM; +QUET100T34 PO
[2025-03-27 23:28] VITALS: BP 103/65; PULSE 95; RESP 14; O2SAT 98
--- NOTE | 2025-03-28 03:08 | Physician Documentation ---
History of Present Illness ~ General Chief Complaint: General Stated Complaint: Time Seen by MD: 02:59 Primary Medical Doctor: [facility] History of Present Illness Initial Comments Patient presents to the emergency room for evaluation. He has history of schizophrenia and feels like he is having problems focusing in his feeling out of it Medication Reconciliation Allergies: Coded Allergies: haloperidol (Verified Allergy, Unknown, 03/02/25) morphine (Verified Allergy, Unknown, 03/02/25) Scheduled Quetiapine Fumarate (Quetiapine Fumarate), 300 MG PO HS Past Medical History Past Medical History: Bipolar, Psychosis, Schizophrenia Past Surgical History: orthopedic surgeries Patient History: Patient reports no known family medical history. Alcohol Use: None Drug Use: marijuana, methamphetamine Lives In: Homeless Occupation: retired Review of Systems ROS All review of systems negative except as per HPI Physical Exam Physical Exam Vital Signs: Temperature: 98.2, Source: Temporal, Heart Rate: 95, Respiratory Rate: 14, BP: 103/65, Pulse Oximetry: 98, Weight: 65.200 Oxygen Flow Rate: 0 Physical Exam General: Patient is sleeping, easily aroused. Homeless appearing Head: Normocephalic and atraumatic. Eyes: Conjunctival normal. EOMI. PERRL. ENT: Mucous membranes moist. Neck: Supple, trachea is midline. Chest: Clear to auscultation bilaterally without rales, rhonchi, or wheezes. There is no accessory muscle use or retractions. Cardiac: RRR without murmurs, gallops, or rubs. Progress Results/Orders Results/Orders Vital Signs 03/27/25 03/28/25 23:28 03:10 Temp 98.2 98.2 Pulse 95 Resp 14 B/P (MAP) 103/65 Pulse Ox 98 O2 Flow Rate 0 Medical Decision Making Findings Patient who is well known to the emergency room presents to the emergency room feeling out of it . Vital signs are stable. History of schizophrenia. I do not feel he requires emergent labs or imaging at this time. I do not feel he is gravely disabled. Departure Disposition: HOME / SELF CARE / HOMELESS Impression: Primary Impression: General medical exam Condition: Stable Discharge Instructions: General Discharge Instructions Referrals: NO PRIMARY CARE PROVIDER (PCP) Signature Scribe Signature: No scribe Attestation: The note accurately reflects work and decisions made by me.Nino Warren MD 03/28/25 03:07 NINO WARREN MD March 28, 2025 03:07
[2025-03-28 03:10] VITALS: TEMP 98.2
== END 2025-03-28 03:17 | disposition home or self-care (01) ==
LOC: ER 23:25
DX: Z00.8 Encounter for other general examination (principal); F20.9 Schizophrenia, unspecified; F12.90 Cannabis use, unspecified, uncomplicated; F15.90 Other stimulant use, unspecified, uncomplicated; Z88.5 Allergy status to narcotic agent; Z88.8 Allergy status to other drugs, medicaments and biological substances
CPT/HCPCS: 99281

== ENCOUNTER 2025-04-10 12:53 | Emergency (ER) | payer MEDICARE, MEDICAID ==
[~2025-04-10] VITALS: Ht 182.9 cm; Wt 78.2 kg
[2025-04-10 13:03] VITALS: BP 112/65; PULSE 103; TEMP 99.1; O2SAT 94
[2025-04-10 13:15] VITALS: RESP 18
== END 2025-04-10 15:24 | disposition left against medical advice (07) ==
LOC: ER 12:54
DX: Z00.8 Encounter for other general examination (principal); Z88.5 Allergy status to narcotic agent; Z88.8 Allergy status to other drugs, medicaments and biological substances; Z53.21 Procedure and treatment not carried out due to patient leaving prior to being seen by health care provider
CPT/HCPCS: A6223

== ENCOUNTER 2025-04-10 20:57 | Emergency (ER) | payer MEDICARE, MEDICAID ==
[~2025-04-10] VITALS: Ht 180.3 cm; Wt 70.0 kg
[2025-04-10 21:36] LABS: BASOPHILS % (AUTO) 0.4 % (0-1); EOSINOPHILS # (AUTO) 0.2 X10'3 (0-0.9); EOSINOPHILS % (AUTO) 2.4 % (0-6); HEMATOCRIT 35.3 % (42.0-52.0); HEMOGLOBIN 11.8 g/dl (14.0-17.9); LYMPHOCYTES # (AUTO) 1.5 X10'3 (1.1-4.8); LYMPHOCYTES % (AUTO) 18.1 % (21-51); MEAN CORPUSCULAR HEMOGLOBIN 28.7 PG (27.0-31.0); MEAN CORPUSCULAR HGB CONC 33.5 g/dL (33.0-36.5); MEAN CORPUSCULAR VOLUME 85.8 FL (78-98); MEAN PLATELET VOLUME 6.8 FL (7.4-10.4); MONOCYTES # (AUTO) 0.6 X10'3 (0-0.9); MONOCYTES % (AUTO) 7.7 % (2-12); NEUTROPHILS # (AUTO) 5.7 X10'3 (1.8-7.7); NEUTROPHILS % (AUTO) 71.4 % (42-75); PLATELET COUNT 307 X10'3 (140-440); RED BLOOD COUNT 4.12 X10'6 (4.70-6.10); RED CELL DISTRIBUTION WIDTH 16.6 % (11.5-14.5)
[2025-04-10 22:02] LABS: ALBUMIN 3.2 G/DL (3.4-5.0); ANION GAP 10 (8-16); BLOOD UREA NITROGEN 16 MG/DL (7-18); CALCIUM 8.5 MG/DL (8.5-10.1); CHLORIDE 106 MMOL/L (99-107); CREATININE 0.89 MG/DL (0.60-1.10); ETHANOL < 10 MG/DL (<10); GLUCOSE 97 MG/DL (70-104); POTASSIUM 3.5 MMOL/L (3.5-5.1); SODIUM 140 MMOL/L (135-145); THYROID STIMULATING HORMONE 4.53 ulU/ml (0.34-4.50); TOTAL CARBON DIOXIDE 23.9 MMOL/L (24-32); eCRCL 104 ML/MIN; eGFR > 90 ML/MIN
--- NOTE | 2025-04-10 23:39 | Physician Documentation ---
History of Present Illness ~ Chief Complaint: Mental Health Eval Stated Complaint: MH EVAL Time Seen by MD: 23:29 Primary Medical Doctor: [facility] Mode of Arrival: POV HPI Patient presents to the emergency room with thoughts of suicide. He has been here many times for previous ideation Medication Reconciliation Allergies: Coded Allergies: haloperidol (Verified Allergy, Unknown, 04/10/25) morphine (Verified Allergy, Unknown, 04/10/25) Scheduled Quetiapine Fumarate (Quetiapine Fumarate), 300 MG PO HS Past Medical History Past Medical History: Bipolar, Psychosis, Schizophrenia Past Surgical History: orthopedic surgeries Patient History: Patient reports no known family medical history. Alcohol Use: None Drug Use: marijuana, methamphetamine Lives In: Homeless Occupation: retired Review of Systems ROS All review of systems negative except as per HPI Physical Exam Vital Signs: Temperature: 98.2, Source: Temporal, Heart Rate: 100, Respiratory Rate: 16, BP: 121/76, Pulse Oximetry: 98, Weight: 70.050 Oxygen Flow Rate: 0 Physical Exam General: Patient is sleeping, easily arousable, cooperative Head: Normocephalic and atraumatic. Eyes: Conjunctival normal. EOMI. PERRL. ENT: Mucous membranes moist. Neck: Supple, trachea is midline. Chest: Clear to auscultation bilaterally without rales, rhonchi, or wheezes. There is no accessory muscle use or retractions. Cardiac: RRR without murmurs, gallops, or rubs. Psych: Poor eye contact, erratic behavior, suicidal Progress Results/Orders Results/Orders Orders - NINO WARREN MD Urinalysis (04/10/25 21:13) Drug Screen, Urine (04/10/25 21:13) Close Observation Level (04/10/25 21:13) Covid19 Binax Poc Result Entry (04/10/25 21:13) Completed Orders - NINO WARREN MD Cbc/Diff (04/10/25 21:13) Ethanol (04/10/25 21:13) TSH (04/10/25 21:13) BMP (04/10/25 21:13) Vital Signs 04/10/25 04/10/25 21:08 21:22 Temp 98.2 Pulse 100 Resp 18 16 B/P (MAP) 121/76 Pulse Ox 98 O2 Flow Rate 0 Laboratory Tests Test 04/10/25 21:24 04/10/25 21:25 White Blood Count 8.0 Red Blood Count 4.12 L Hemoglobin 11.8 L Hematocrit 35.3 L Mean Corpuscular Volume 85.8 Mean Corpuscular Hemoglobin 28.7 Mean Corpuscular Hemoglobin Concent 33.5 Red Cell Distribution Width 16.6 H Platelet Count 307 Mean Platelet Volume 6.8 L Neutrophils (%) (Auto) 71.4 Lymphocytes (%) (Auto) 18.1 L Monocytes (%) (Auto) 7.7 Eosinophils (%) (Auto) 2.4 Basophils (%) (Auto) 0.4 Neutrophils # (Auto) 5.7 Lymphocytes # (Auto) 1.5 Monocytes # (Auto) 0.6 Eosinophils # (Auto) 0.2 Basophils # (Auto) 0.0 CBC Comment Sodium Level 140 Potassium Level 3.5 Chloride Level 106 Carbon Dioxide Level 23.9 L Anion Gap 10 Blood Urea Nitrogen 16 Creatinine 0.89 Estimated GFR/1.73 m2 > 90 BUN/Creatinine Ratio 18.0 Glucose Level 97 Calcium Level 8.5 Albumin 3.2 L Thyroid Stimulating Hormone (TSH) 4.53 H Chemistry Comments Ethyl Alcohol Level < 10 SARS-CoV-2 Antigen (Rapid) Negative Medical Decision Making Findings Patient presented to the emergency room with suicidal ideation. Differentials include but are not limited to suicidal ideation, dysthymia, thyroid disorder, depression. It was 1799 placed and labs reviewed and there was no evidence of major pathologic derangements and patient is medically cleared for mental health evaluation Departure Disposition: 30 STILL A PATIENT Impression: Primary Impression: Suicidal ideation Condition: Guarded Referrals: NO PRIMARY CARE PROVIDER (PCP) Signature Scribe Signature: No scribe Attestation: The note accurately reflects work and decisions made by me.Nino Warren MD 04/10/25 23:38 NINO WARREN MD Apr 10, 2025 23:39
[2025-04-11 00:08] LABS: FREE T4 (FREE THYROXINE) 0.97 NG/DL (0.73-1.40)
[2025-04-11 06:35] LABS: URINE AMPHETAMINE SCREEN POSITIVE (Neg); URINE BARBITUATE SCREEN NEGATIVE (Neg); URINE BENZODIAZEPINES SCREEN NEGATIVE (Neg); URINE CANNABINOID SCREEN POSITIVE (Neg); URINE COCAINE SCREEN NEGATIVE (Neg); URINE METHADONE SCREEN NEGATIVE (Neg); URINE OPIATE SCREEN NEGATIVE (Neg); URINE PHENCYCLIDINE SCREEN NEGATIVE (Neg)
[2025-04-11 06:40] LABS: BILIRUBIN,URINE NEGATIVE (Neg); CLARITY,URINE CLEAR (Clear); COLOR,URINE YELLOW (Yellow); GLUCOSE, URINE NEGATIVE (Neg); KETONES,URINE NEGATIVE (Neg); LEUKOCYTE ESTERASE ,URINE NEGATIVE (Neg); NITRITES, URINE NEGATIVE (Neg); OCCULT BLOOD,URINE NEGATIVE (Neg); PROTEIN,URINE NEGATIVE (Neg); UROBILINOGEN,URINE 0.2 E.U/dL (0.2-1.0)
[2025-04-11 06:50] LABS: UA COLLECTION TYPE CLN CATCH MIDSTREAM
[2025-04-11] MEDS: olanzapine 10mg tablet PO ONE (09:10)
[2025-04-11] MEDS: diphenhydrAMINE 25mg capsule PO ONE (09:10)
[2025-04-11] MEDS: LORazepam 1 MG tablet PO ONE (09:10)
[2025-04-12] MEDS: ziprasidone 20mg capsule PO ONE (12:17)
[2025-04-12] MEDS: diphenhydrAMINE 25mg capsule PO ONE (12:17)
[2025-04-12] MEDS: LORazepam 1 MG tablet PO ONE (12:17)
[2025-04-12] MEDS: diphenhydrAMINE 50 mg/ml inj IM ONE (12:32)
[2025-04-12] MEDS: LORazepam 2 mg/ml vial IM ONE (12:32)
[2025-04-12] MEDS: haloperidol lactate 5mg/ml inj IM ONE (12:33)
[2025-04-13] MEDS ORDERED: PALI234D IM (12:10)
[2025-04-13] MEDS: LORazepam 2 mg/ml vial IM ONE (16:40)
[2025-04-13] MEDS: diphenhydrAMINE 50 mg/ml inj IM ONE (16:40)
[2025-04-13] MEDS: OLANZapine **IM** 10 mg inj. IM ONE ×3 (16:41→17:23)
[2025-04-13] MEDS: paliperidone palmitate inj 234 MG/1.5 ML SYRINGE IM ONE (19:56)
[2025-04-13] MEDS: sertraline 25mg tablet PO SCH (20:40)
[2025-04-14] MEDS: diphenhydrAMINE 50 mg/ml inj IM ONE (12:35)
[2025-04-14] MEDS: LORazepam 2 mg/ml vial IM ONE (15:28)
[2025-04-14] MEDS: OLANZapine **IM** 10 mg inj. IM ONE (15:28)
[2025-04-15] MEDS: hydrOXYzine 25 MG tablet PO ONE (19:05)
[2025-04-15] MEDS: traZODone 50mg tablet PO PRN (20:33)
[2025-04-16] MEDS: OLANZapine 5mg rapidly disint. tablet PO ONE (00:40)
[2025-04-16] MEDS: LORazepam 1 MG tablet PO ONE (00:40)
[2025-04-17] MEDS: OLANZapine **IM** 10 mg inj. IM ONE (16:34)
[2025-04-17 18:19] LABS: LORAZEPAM (ATIVAN) 14 ng/mL (50 - 240)
[2025-04-17] MEDS: sertraline 50mg tablet PO SCH (20:23)
[2025-04-18] MEDS: OLANZapine 2.5MG tablet PO ONE (21:45)
[2025-04-18] MEDS: OLANZapine 5mg rapidly disint. tablet PO ONE (21:55)
[2025-04-19] MEDS: olanzapine 10mg tablet PO ONE (08:08)
[2025-04-19] MEDS: OLANZapine **IM** 10 mg inj. IM ONE (16:35)
[2025-04-19] MEDS: OLANZapine 5mg rapidly disint. tablet PO ONE (22:05)
[2025-04-20] MEDS: olanzapine 10mg tablet PO SCH (22:15)
[2025-04-22] MEDS: Melatonin 3mg tablet PO SCH (22:02)
[2025-04-24] MEDS: mag hydrox/Alum hydrox/simeth 30ml oral suspension PO ONE (23:11)
[2025-04-26] MEDS: NICOTINE POLACRILEX 2 MG LOZENGE BC PRN (17:50)
[2025-04-26] MEDS ORDERED: olanzapine 10mg tablet PO PRN (21:05)
[2025-04-27] MEDS ORDERED: paliperidone palmitate 156 mg/ml inj.**IM only IM ONE (08:00)
[2025-04-28 05:28] VITALS: TEMP 97.7
[2025-04-28] MEDS ORDERED: NICOTINE POLACRILEX 2 MG LOZENGE BC PRN (09:40)
[2025-04-28 09:57] VITALS: BP 137/88; PULSE 72; RESP 15; O2SAT 100
== END 2025-04-28 10:50 | disposition home or self-care (01) ==
LOC: ER 20:58
DX: F20.9 Schizophrenia, unspecified (principal); R45.851 Suicidal ideations; F12.90 Cannabis use, unspecified, uncomplicated; F15.90 Other stimulant use, unspecified, uncomplicated; F32.A Depression, unspecified; Z88.5 Allergy status to narcotic agent; Z88.8 Allergy status to other drugs, medicaments and biological substances; Z20.822 Contact with and (suspected) exposure to COVID-19
CPT/HCPCS: 36415; 80048; 80305; 80346; 81003; 84439; 84443; 85025; 87811; 96372; 99285; G0480; J1200; J2060; J3490; Q0163; 80320